=== PATIENT | female | born 1990 | race African-American/Black ===

== ENCOUNTER → 2020-12-19 11:02 | Outpatient (BNVA) | payer MEDICAID, SELFPAY | PROVIDERS: PCP Family Medicine; Referring Provider Family Medicine; Visit Provider Physician Assistant ==

== ENCOUNTER → 2020-12-20 10:12 | Outpatient (BNVA) | payer MEDICAID, SELFPAY | PROVIDERS: PCP Family Medicine; Visit Provider Surgery ==

== ENCOUNTER 2020-12-21 10:13 | Outpatient (REF) | payer MEDICAID, SELFPAY ==
--- NOTE | ~2020-12-21 | XR_ITS ---
EXAMINATION: XR CHEST CLINICAL INFORMATION: Obesity COMPARISON: None TECHNIQUE: 2 views of the chest were obtained. FINDINGS: No significant abnormality is noted involving the heart, lungs, mediastinum, bony thorax or soft tissues. XR/XR chest 2V IMPRESSION: Unremarkable examination.
--- NOTE | 2020-12-21 10:21 | ECG_ITS ---
Test Reason : MORBID OBESITY Blood Pressure : / mmHG Vent. Rate : 062 BPM Atrial Rate : 062 BPM P-R Int : 190 ms QRS Dur : 088 ms QT Int : 424 ms P-R-T Axes : 009 066 013 degrees QTc Int : 430 ms Normal sinus rhythm Normal ECG No previous ECGs available Referred By: Kendall Solano Electronically Signed By:MARIANA LOPEZ
[2020-12-21 11:22] LABS: MANUAL DIFF FLAG NO
[2020-12-21 11:39] LABS: Alanine Aminotransferase 16 U/L (0-31); Alkaline Phosphatase 85 U/L (39-117); Anion Gap 11 (12-20); Aspartate Amino Transferase 18 U/L (5-31); Bilirubin Total 0.6 mg/dL (0.0-1.0); Blood Urea Nitrogen 17 mg/dL (9-16); C Reactive Protein 0.85 mg/dL (< or = 0.50); Calcium 9.3 mg/dL (8.4-10.2); Carbon Dioxide 26 mmol/L (22-29); Chloride 105 mmol/L (96-108); Cholesterol 216 mg/dL; Estimated Glomerular Filt Rate > 60; Glucose Random 84 mg/dL (60-115); HDL Cholesterol 40 mg/dL; Iron 70 mcg/dL (30-160); LDL Cholesterol Calculated 148 mg/dl; Percent Iron Saturation 23 % (15-50); Potassium 4.3 mmol/L (3.3-5.1); Sodium 138 mmol/L (135-145); Total Iron Binding Capacity 309 mcg/dL (228-428); Triglycerides 142 mg/dL; Unsaturated Iron Binding 239 ug/dL
[2020-12-21 11:40] LABS: Basophils Percent Auto 0.3 % (0-2); Eosinophils Absolute Auto 0.1 X10*3/uL (0.0-0.4); Eosinophils Percent Auto 2.2 % (0-4); Hematocrit 37.7 % (37-47); Hemoglobin 11.9 g/dl (12.0-16.0); Imm Gran Abs Auto 0.02 X10*3/uL (0.00-0.03); Imm Gran Pct Auto 0.3 % (0.0-0.4); Lymphocytes Absolute Auto 2.2 X10*3/uL (1.2-4.9); Lymphocytes Percent Auto 37.1 % (20-40); Mean Corpuscular HGB Conc 31.6 g/dl (31.0-35.0); Mean Corpuscular Hemoglobin 27.2 pg (27.0-33.0); Mean Corpuscular Volume 86.3 fL (80-98); Mean Platelet Volume 11.1 fL (9.4-12.3); Monocytes Absolute Auto 0.4 X10*3/uL (0.1-1.2); Monocytes Percent Auto 7.4 % (2-11); Neutrophils Absolute Auto 3.1 X10*3/uL (2.0-8.3); Neutrophils Percent Auto 52.7 % (45-73); Platelet Count 289 X10*3/uL (160-400); Red Blood Count 4.37 X10*6/uL (4.20-5.50); Red Cell Distribution Width 13.4 % (11.0-16.0)
[2020-12-21 11:54] LABS: Estimated Average Glucose 103 mg/dL; Hemoglobin A1c % 5.2 %
[2020-12-21 12:04] LABS: Ferritin 24 ng/mL (10-122); TSH reflex Free T4 3.46 uIU/mL (0.32-4.0); Vitamin D 25-OH Total 9.8 ng/mL (>30)
[2020-12-21 12:15] LABS: Folate 7.9 ng/mL (> or = 4.0); Vitamin B12 261 pg/mL (200-900)
[2020-12-22 09:11] LABS: Insulin Level Total 9.7 uIU/mL
[2020-12-22 13:12] LABS: Calcium (PTHI) 9.4 mg/dL (8.6-10.2); PTHI 62 pg/mL (14-64)
[2020-12-24 01:11] LABS: Zinc 79 mcg/dL (60-130)
[2020-12-26 13:16] LABS: Vitamin A 30 mcg/dL (38-98)
[2020-12-27 10:06] LABS: Vitamin B1 8 nmol/L (8-30)
== END 2020-12-21 10:14 | disposition home or self-care (01) ==
LOC: HO.LAB 10:13
PROVIDERS: Visit Provider Surgery
DX: E66.01 Morbid (severe) obesity due to excess calories (principal); E03.9 Hypothyroidism, unspecified; K21.9 Gastro-esophageal reflux disease without esophagitis
CPT/HCPCS: 36415; 71046; 80053; 80061; 82306; 82607; 82728; 82746; 83036; 83525; 83540; 83970; 84425; 84443; 84590; 84630; 85025; 86140; 93005

== ENCOUNTER 2021-01-11 08:31 | Outpatient (REF) | payer MEDICAID, SELFPAY ==
--- NOTE | ~2021-01-11 | FL_ITS ---
EXAMINATION: FL GI SERIES CLINICAL INFORMATION: Moderate to severe obesity. COMPARISON: None TECHNIQUE: Routine upper GI air contrast study was performed FINDINGS: Following oral administration of thick barium and effervescent granules there is normal propagation of bolus from the oral cavity through the pharynx, esophagus into stomach without any evidence of obstruction, narrowing or stricture. On placing patient supine and prone lying the course, caliber and peristalsis of the stomach is normal. No gastroesophageal reflux or hiatal hernia seen. A small segment of the fundus extends to the diaphragm, question diverticulum. The mucosal pattern of the stomach and duodenum is normal. FLUOROSCOPY TIME: 1.1 minutes DOSE AREA PRODUCT: 71.375 uGy-m2 (microgray-meter squared) FL/FL upper GI series IMPRESSION: Unremarkable upper GI air contrast study except for possible gastric fundus diverticulum.
--- NOTE | 2021-01-11 09:51 | PFT_ITS ---
INDICATION: Asthma. SPIROMETRY: The FEV1 to FVC 90% with an FEV1 of 4.28 L, which is 119% predicted, and an FVC of 4.78 L, which is 112% predicted. No significant response to bronchodilators noted. Maximum voluntary ventilation 114% predicted. LUNG VOLUMES: Total lung capacity 99% predicted with diffusion capacity of 89% predicted. Flow volume loop appears to be normal. COMPARISONS: None. INTERPRETATION: No obstructive nor restrictive ventilatory defects identified. No significant response to bronchodilators noted. Normal lung volumes and normal diffusion capacity. Otherwise, consistent with normal lung mechanics. If asthma is in the differential, methacholine challenge may be helpful in assessing for hyper-reactive airways, otherwise clinical correlation warranted. Eduin Alfaro MD MR/MODL / [id number]
[2021-01-12 12:32] LABS: H Pylori Breath Test NOT DETECTED (NOT DETECTED)
== END 2021-01-11 08:32 | disposition home or self-care (01) ==
LOC: HO.US 08:31
PROVIDERS: Visit Provider Surgery
DX: Z01.818 Encounter for other preprocedural examination (principal); E66.01 Morbid (severe) obesity due to excess calories; K21.9 Gastro-esophageal reflux disease without esophagitis; J45.41 Moderate persistent asthma with (acute) exacerbation; G47.10 Hypersomnia, unspecified; E03.9 Hypothyroidism, unspecified; G47.19 Other hypersomnia
CPT/HCPCS: 74240; 83013; 94060; 94727; 94729; 95806; 99211

== ENCOUNTER → 2021-01-12 08:21 | Outpatient (BNVA) | payer MEDICAID, SELFPAY | PROVIDERS: PCP Family Medicine; Visit Provider Dietitian, Registered | DX: E66.01 Morbid (severe) obesity due to excess calories (principal) | CPT/HCPCS: 97802 ==

== ENCOUNTER → 2021-01-18 08:20 | Outpatient (BNVA) | payer MEDICAID, SELFPAY | PROVIDERS: PCP Family Medicine; Visit Provider Surgery ==

== ENCOUNTER → 2021-01-31 08:12 | Outpatient (BNVA) | payer MEDICAID, SELFPAY | PROVIDERS: PCP Family Medicine; Visit Provider Physician Assistant ==

== ENCOUNTER 2023-03-12 11:54 | Outpatient (REF) | payer MEDICAID, SELFPAY ==
[2023-03-12 14:24] LABS: Free T4 (Free Thyroxine) 0.88 ng/dL (0.71-1.85); Thyroid Stimulating Hormone 7.58 uIU/mL (0.32-4.0)
== END 2023-03-12 11:55 | disposition home or self-care (01) ==
LOC: HO.HHCL 11:54
PROVIDERS: Visit Provider Family Medicine
DX: Z13.89 Encounter for screening for other disorder (principal)
CPT/HCPCS: 36415; 84439; 84443

== ENCOUNTER 2023-03-21 12:06 | Outpatient (REF) | payer MEDICAID, SELFPAY ==
--- NOTE | ~2023-03-21 | XR_ITS ---
EXAMINATION: XR foot RT min 3V, XR foot LT min 3V CLINICAL INFORMATION: Bilateral heel pain COMPARISON: None. TECHNIQUE: 3 views of the right foot. 3 views of the left foot. FINDINGS: Right foot: No fracture or dislocation. Alignment is anatomic. Joint spaces are maintained. Mild diffuse soft tissue swelling/prominence. There is moderate hypertrophic spurring at the plantar aponeurosis and Achilles insertion to the calcaneus. Left foot: No fracture or dislocation. Alignment is anatomic. Joint spaces are maintained. Mild diffuse soft tissue swelling/prominence. There is mild hypertrophic spurring of the plantar aponeurosis and Achilles insertion to the calcaneus. XR/XR foot RT min 3V IMPRESSION: Bilateral heel spurs, right greater than left. Mild diffuse soft tissue swelling/prominence.
--- NOTE | ~2023-03-21 | XR_ITS ---
EXAMINATION: XR foot RT min 3V, XR foot LT min 3V CLINICAL INFORMATION: Bilateral heel pain COMPARISON: None. TECHNIQUE: 3 views of the right foot. 3 views of the left foot. FINDINGS: Right foot: No fracture or dislocation. Alignment is anatomic. Joint spaces are maintained. Mild diffuse soft tissue swelling/prominence. There is moderate hypertrophic spurring at the plantar aponeurosis and Achilles insertion to the calcaneus. Left foot: No fracture or dislocation. Alignment is anatomic. Joint spaces are maintained. Mild diffuse soft tissue swelling/prominence. There is mild hypertrophic spurring of the plantar aponeurosis and Achilles insertion to the calcaneus. XR/XR foot LT min 3V IMPRESSION: Bilateral heel spurs, right greater than left. Mild diffuse soft tissue swelling/prominence.
--- NOTE | ~2023-03-21 | XR_ITS ---
EXAMINATION: XR HIP, RIGHT CLINICAL INFORMATION: Chronic right hip pain COMPARISON: 03/25/2018 TECHNIQUE: Two views of the right hip. FINDINGS: No fracture or dislocation. Alignment is anatomic. The joint space is maintained, though there may be some acetabular overgrowth superiorly. This is similar to prior. The right hemipelvis is intact. Soft tissues are unremarkable. XR/XR hip RT min 2V IMPRESSION: No acute abnormality. Possible acetabular overgrowth superiorly. This is similar to prior. Consider pincer-type JAKOB.
== END 2023-03-21 12:07 | disposition home or self-care (01) ==
LOC: HO.XRAY 12:06
PROVIDERS: PCP Family Medicine; Visit Provider Family Medicine
DX: M79.671 Pain in right foot (principal); M79.672 Pain in left foot; M25.551 Pain in right hip; G89.29 Other chronic pain
CPT/HCPCS: 73502; 73630

== ENCOUNTER 2023-05-23 12:45 | Outpatient (REF) | payer MEDICAID, SELFPAY | END 2023-05-23 12:46 | disposition home or self-care (01) | LOC: HO.HHCL 12:45 | PROVIDERS: Visit Provider Family Medicine | DX: E03.9 Hypothyroidism, unspecified (principal) | CPT/HCPCS: 36415; 84439; 84443 ==

== ENCOUNTER 2023-11-14 10:58 | Outpatient (REF) | payer MEDICAID, SELFPAY ==
[2023-11-14 13:56] LABS: Alanine Aminotransferase 23 U/L (0-31); Albumin Level 3.6 g/dL (3.5-5.0); Alkaline Phosphatase 68 U/L (39-117); Anion Gap 10 (12-20); Aspartate Amino Transferase 20 U/L (5-31); Bilirubin Total 0.6 mg/dL (0.0-1.0); Blood Urea Nitrogen 12 mg/dL (9-16); Calcium 9.2 mg/dL (8.4-10.2); Carbon Dioxide 29 mmol/L (22-29); Chloride 104 mmol/L (96-108); Cholesterol 206 mg/dL (<200); Estimated Glomerular Filt Rate > 60; Glucose Random 84 mg/dL (60-115); HDL Cholesterol 45 mg/dL (>40); LDL Cholesterol Calculated 135 mg/dL (<100); Potassium 3.6 mmol/L (3.3-5.1); Sodium 139 mmol/L (135-145); Total Protein 6.6 g/dL (6.5-8.0); Triglycerides 133 mg/dL (<150)
[2023-11-14 13:59] LABS: Estimated Average Glucose 103 mg/dL; Hemoglobin A1c % 5.2 % (<6.0)
[2023-11-14 14:15] LABS: Free T4 (Free Thyroxine) 0.94 ng/dL (0.71-1.85); Thyroid Stimulating Hormone 6.58 uIU/mL (0.32-4.0)
[2023-11-14 14:19] LABS: Reflex LDLD? No
== END 2023-11-14 10:59 | disposition home or self-care (01) ==
LOC: HO.HHCL 10:58
PROVIDERS: Visit Provider Family Medicine
DX: R03.0 Elevated blood-pressure reading, without diagnosis of hypertension (principal); E03.8 Other specified hypothyroidism; E06.3 Autoimmune thyroiditis; E66.01 Morbid (severe) obesity due to excess calories; Z68.44 Body mass index [BMI] 60.0-69.9, adult
CPT/HCPCS: 36415; 80053; 80061; 83036; 84439; 84443

== ENCOUNTER 2024-03-26 13:46 | Outpatient (REF) | payer MEDICAID, SELFPAY ==
[2024-03-27 20:19] LABS: C. trachomatis RNA TMA NOT DETECTED (NOT DETECTED); N. gonorrhoeae RNA TMA NOT DETECTED (NOT DETECTED)
[2024-03-29 08:39] LABS: Trichomonas (NAAT) NOT DETECTED (NOT DETECTED)
[2024-03-30 11:43] LABS: HPV mRNA E6/E7 Not Detected (Not Detected)
== END 2024-03-26 13:47 | disposition home or self-care (01) ==
LOC: HO.HHCLNP 13:46
PROVIDERS: Visit Provider Advanced Practice Midwife
DX: Z12.4 Encounter for screening for malignant neoplasm of cervix (principal)
CPT/HCPCS: 36415; 87491; 87591; 87624; 87661; 88175

== ENCOUNTER 2024-03-30 15:59 | Outpatient (REF) | payer MEDICAID, SELFPAY ==
--- NOTE | ~2024-03-30 | US_ITS ---
EXAM: Pelvic Ultrasound CLINICAL INDICATION: Dysmenorrhea COMPARISON: Pelvic ultrasound March 01, 2021 TECHNIQUE: The pelvis was evaluated using transabdominal and transvaginal imaging. Color Doppler imaging and spectral analysis of the bilateral ovaries was also performed. FINDINGS: The uterus measures 11.4 x 6.6 x 8.5 cm in longitudinal by AP by transverse dimension. The endometrial stripe measures 1.2 cm. The endometrium demonstrates an overall heterogeneous appearance. There is a 1.2 cm nabothian cyst within the cervix. The left ovary measures approximately 4.1 x 1.5 x 3.0 cm and contains a dominant 2.4 cm dominant follicle versus cyst.. The right ovary measures approximately 2.4 x 1.6 x 1.4 cm and is normal. Both ovaries demonstrate several small peripherally oriented cysts. There is no free fluid in the pelvis. US/US pelvic and transvaginal IMPRESSION: 1. Heterogeneous endometrium measures 1.2 cm in thickness. Correlation with menstrual cycle recommended. 2. Both ovaries demonstrate several small peripherally oriented cysts. This is a nonspecific finding but can be seen with polycystic ovarian syndrome. Clinical correlation recommended. Electronically signed by: Pepe Whiteside MD 04/17/2024 07:20 AM EDT
== END 2024-03-30 16:00 | disposition home or self-care (01) ==
LOC: HO.US 15:59
PROVIDERS: PCP Family Medicine; Visit Provider Advanced Practice Midwife
DX: N94.6 Dysmenorrhea, unspecified (principal)
CPT/HCPCS: 76830; 76856

== ENCOUNTER 2024-10-10 09:39 | Outpatient (REF) | payer MEDICAID, SELFPAY ==
--- NOTE | ~2024-10-10 | MR_ITS ---
CLINICAL HISTORY: SKELTON, Blurry vision, concern for intracranial HTN MR Brain without gadolinium Comparison: None Findings: No restricted diffusion. No intracranial mass or hemorrhage. No midline shift. No hydrocephalus. Vascular flow voids are intact. The orbits are normal. The sinuses and mastoid air cells are clear. No focal bone lesion. IMPRESSION: No acute findings. This document has been electronically signed by: Alfred Wynn MD on 10/12/2024 08:56:07
== END 2024-10-10 09:40 | disposition home or self-care (01) ==
LOC: HO.MRI 09:39
PROVIDERS: PCP Family Medicine; Visit Provider Family Medicine
DX: G43.009 Migraine without aura, not intractable, without status migrainosus (principal); R03.0 Elevated blood-pressure reading, without diagnosis of hypertension
CPT/HCPCS: 70551

== ENCOUNTER → 2024-10-10 09:59 | Outpatient (BNV) | payer MEDICAID, SELFPAY | PROVIDERS: PCP Family Medicine; Visit Provider Specialist | DX: R51.9 Headache, unspecified (principal) | CPT/HCPCS: 70551 ==

== ENCOUNTER 2024-11-06 13:22 | Outpatient (REF) | payer MEDICAID, SELFPAY ==
--- NOTE | 2024-11-06 | EMG_ITS ---
Chief complaint: Bilateral hand numbness and pain Reason for referral: Evaluate for Carpal Tunnel Syndrome Referred by: Dr. Shi Procedure done: Upper extremity NCS/EMG Precautions and/or limitations: None The limb temperature was monitored continuously and remained between 32-36 degrees C during the performance of the NCS. Nerve Conduction Studies Anti Sensory Summary Table ?Stim Site NR Onset (ms) Norm Onset (ms) Peak (ms) Norm Peak (ms) O-P Amp (?V) Norm O-P Amp Site1 Site2 Delta-0 (ms) Dist (cm) Dylan (m/s) Norm Dylan (m/s) Left Median Anti Sensory (2nd Digit) Wrist ? 3.0 3.8 <3.6 32.1 >10 Wrist 2nd Digit 3.0 14.0 47 Right Median Anti Sensory (2nd Digit) Wrist ? 3.3 4.0 <3.6 19.6 >10 Wrist 2nd Digit 3.3 14.0 42 Right Radial Anti Sensory (Thumb) Forearm ? 1.7 2.3 <3.1 11.7 Forearm Thumb 1.7 0.0 Left Ulnar Anti Sensory (5th Digit) Wrist ? 2.5 3.1 <3.7 15.0 >15.0 Wrist 5th Digit 2.5 14.0 56 Right Ulnar Anti Sensory (5th Digit) Wrist ? 2.3 3.1 <3.7 20.2 >15.0 Wrist 5th Digit 2.3 14.0 61 Motor Summary Table ?Stim Site NR Onset (ms) Norm Onset (ms) O-P Amp (mV) Norm O-P Amp iAmp (mV) Amp (1st) (%) Site1 Site2 Delta-0 (ms) Dist (cm) Dylan (m/s) Norm Dylan (m/s) Left Median Motor (Abd Poll Brev) Wrist ? 3.8 <3.9 10.9 >4.5 13.1 100.0 Elbow Wrist 3.6 21.0 58 >45 Elbow ? 7.4 9.3 11.2 85.3 Right Median Motor (Abd Poll Brev) Wrist ? 4.1 <3.9 7.9 >4.5 9.7 100.0 Elbow Wrist 3.8 22.0 58 >45 Elbow ? 7.9 6.9 8.4 87.3 Left Ulnar Motor (Abd Dig Minimi) Wrist ? 2.7 <3.0 5.0 >5 6.2 100.0 B Elbow Wrist 3.4 20.0 59 >45 B Elbow ? 6.1 3.9 5.5 83.0 A Elbow B Elbow 1.2 10.0 83 >45 A Elbow ? 7.3 3.8 5.3 80.9 Right Ulnar Motor (Abd Dig Minimi) Wrist ? 3.0 <3.0 5.7 >5 6.7 100.0 B Elbow Wrist 3.1 20.0 65 >45 B Elbow ? 6.1 4.5 5.5 78.9 A Elbow B Elbow 1.0 10.0 100 >45 A Elbow ? 7.1 4.6 5.5 80.7 EMG ?Side Muscle Nerve Root Ins Act Fibs Psw Amp Dur Poly Recrt Int Pat Comment Right 1stDorInt Ulnar C8-T1 Nml Nml Nml Nml Nml 0 Nml Complete Right FlexCarRad Median C6-7 Nml Nml Nml Nml Nml 0 Nml Complete Right Biceps Musculocut C5-6 Nml Nml Nml Nml Nml 0 Nml Complete Right Triceps Radial C6-7-8 Nml Nml Nml Nml Nml 0 Nml Complete Right Deltoid Axillary C5-6 Nml Nml Nml Nml Nml 0 Nml Complete Left 1stDorInt Ulnar C8-T1 Nml Nml Nml Nml Nml 0 Nml Complete Left FlexCarRad Median C6-7 Nml Nml Nml Nml Nml 0 Nml Complete Left Biceps Musculocut C5-6 Nml Nml Nml Nml Nml 0 Nml Complete Left Triceps Radial C6-7-8 Nml Nml Nml Nml Nml 0 Nml Complete Left Deltoid Axillary C5-6 Nml Nml Nml Nml Nml 0 Nml Complete FINDINGS: Right median motor nerve showed prolonged distal latency, normal amplitude and normal conduction velocity. Bilateral median sensory nerves showed prolonged peak latency. All other nerves tested were within normal. Concentric needle EMG was performed in selected muscles of the bilateral upper extremities. Study did not reveal signs of electric abnormalities as shown in the table above. IMPRESSION: 1. This is an abnormal study. 2. There is electrodiagnostic evidence for right moderate-severe and left mild median neuropathy at the wrist, consistent with carpal tunnel syndrome. 3. There is no electrodiagnostic evidence for ulnar neuropathy, brachial plexopathy, or cervical radiculopathy. Thank you for your kind referral. Karen Romo MD, STEPHEN Board Certified, [place] [employer] and [employer] (ABPMR) Board Certified, [place] Board [employer] Electrodiagnostic Medicine (ABEM) CODIN [phone] x 2 MTDD
--- OUTSIDE RECORDS SUMMARY | 2024-11-06 15:44 | XMS_ITS | Encounter Summary ---
Author Organization [employer] Address [address] [place] [address] 7 [place] [address] Care Team Providers Care Float Nurse Name Role Phone Claribel Shi MD Primary Care Provider [phone] Reason for Visit * Reason Comments Med Refill Encounter Details Date Type Department Care Team ([facility] st Contact Info) Description 10/08/2024 Refill [facility] [address] [place] [address] [phone] Claribel Shi MD [address], [place] [phone] Social History Tobacco Use Types Packs/Day Years Used Date Smoking Tobacco: Never Passive Smoke Exposure: Never Smokeless Tobacco: Never Alcohol Use Standard Drinks/Week Comments Not Currently 0 (1 standard drink = 0.6 oz pur e alcohol) Alcohol Answer Date Recorded Frequency of Alcohol Consumption Not on file 06/16/2024 Average Number of Drinks Not on file 024 Frequency of Binge Drinking Not on file 05/20 Score 0 06/16/2024 Depression Answer Date Recorded Patient Health Questionnaire-9 Score 0 10/01/2024 Patient Health Questionnaire-9 Score 0 10/01/2024 Last PHQ-9: Questionnaire Data Not on file 0 10/01/2024 Housing Stability Answer Date Recorded What is your housing situation today? I have greg hernadez 06/03/[address] you li ve. Do you have problems with any of the following? None of the above 06/03/2024 Food Insecurity Answer Date Recorded Within the past 12 months, y ou worried that your food would run out before you got money to buy more: Sometimes True 2023 Within the past 12 months,th e food you bought just didn't last and you didn't have enough money to get more: Sometimes True 06/03/2024 Transportation Answer Date Recorded In the past 12 months, has l ack of transportation kept you from medical appts, meetings, work or from getting things needed for daily living? No 06/03/2024 Utilities Answer Date Recorded In the past 12 months, has t he electric, gas, oil or water company threatened to shut off services in your home? No 06/03/2024 Depression Answer Date Recorded Patient Health Questionnaire-2 Score 0 10/01/2024 Internet Access Answer Date Recorded Internet Access Q1 Yes 06/03/2024 Internet Access Q2 Not on file 06/03/2024 Comments No Sex and Gender Information Value Date Recorded Sex Assigned at Female 06/18/2022 10:21 AM EDT Legal Sex Female 10:21 AM EDT Gender Identity Female 06/18/2022 10:21 AM EDT Sexual Orientation Straight 06/18/2022 10 :21 AM EDT documented as of this encounter Plan of Treatment Upcoming Encounters Date Type Department Care Team (Late st Contact Info) Description 12/31/2024 11:30 AM EDT Office Visit [facility] [address] [place] [address] Claribel Shi MD [address] [place] [address] documented as of this encounter Visit Diagnoses Not on filedocumented in this encounter Additional Health Concerns Assessment Noted Time PHQ-9 Depression Total Score: 0 10/01/19 25 11:02 AM EST documented as of this encounter Care Teams Float Nurse Relationship Specialty Start Date End Date Claribel Shi MD [address] [place] [address] PCP - General Family Medicine 03/20/12 documented as of this encounter
--- OUTSIDE RECORDS SUMMARY | 2024-11-06 15:44 | XMS_ITS | Encounter Summary ---
Author Organization [employer] Address [address] [facility] [address] [place] [address] Care Team Providers Care Clinical Rehabilitation Aide Name Role Phone Claribel Shi MD Primary Care Provider [phone] Reason for Visit * Reason Onset Date Comments Durable Medical Equipment 10/08/2024 Encounter Details Date Type Department Care Team ([facility] st Contact Info) Description 10/08/2024 Telephone [facility] [address] [place], [place] [phone] Claribel Shi MD [address] [place] [address] Durable Medical Equipment Social History Tobacco Use Types Packs/Day Years [...] AM EDT documented as of this encounter Miscellaneous Notes * Telephone Encounter - Rika Anthony [place] - 10/08/2024 11:17 AM EST DME for blood pressure monitor from [facility] received and is being processed. documented in this encounter Plan of Treatment Upcoming Encounters Date Type Department Care Team (Late st Contact Info) Description 12/31/2024 11:30 AM EDT Office Visit [facility] [address] [place] [address] Claribel Shi MD [address] [place] [address] documented as of this encounter Visit Diagnoses Not on filedocumented in this encounter Additional Health Concerns Assessment Noted Time PHQ-9 Depression Total Score: 0 10/01/19 25 11:02 AM EST documented as of this encounter Care Teams Clinical Rehabilitation Aide Relationship Specialty Start Date End Date Claribel Shi MD [address] [place] [address] PCP - General Family Medicine 03/20/12 documented as of this encounter
--- OUTSIDE RECORDS SUMMARY | 2024-11-06 15:44 | XMS_ITS | Encounter Summary ---
Author Organization [employer] Address [address] [facility] [address] [place] [address] Care Team Providers Care Torch Cutter Name Role Phone Claribel Shi MD Primary Care Provider [phone] Encounter Details Date Type Department Care Team ([facility] st Contact Info) Description 11/02/2024 Refill [facility] [address] [place], [place] [phone] Elizabeth Garcia, RN [address] [place] [address] Social History Tobacco Use Types Packs/Day Years [...] encounter Miscellaneous Notes * Telephone Encounter - Elizabeth Garcia RN - 11/02/2024 2:01 PM EDT Spoke with DME specialist. PCP sent generic Tirzepatide but they way it was sent, when it goes to pharmacy it is billed as Mounjaro, not Zepbound. Has to be sent as the Tirzepatide with Zepbound in the name. Queued script documented in this encounter Plan of Treatment Upcoming Encounters Date Type Department Care Team (Late st Contact Info) Description 12/31/2024 11:30 AM EDT Office Visit [facility] [address] [place] [address] Claribel Shi MD [address] [place] [address] documented as of this encounter Visit Diagnoses Not on filedocumented in this encounter Additional Health Concerns Assessment Noted Time PHQ-9 Depression Total Score: 0 10/01/19 25 11:02 AM EST documented as of this encounter Care Teams Torch Cutter Relationship Specialty Start Date End Date Claribel Shi MD [address] [place] [address] PCP - General Family Medicine 03/20/12 documented as of this encounter
--- OUTSIDE RECORDS SUMMARY | 2024-11-06 15:44 | XMS_ITS | Clinical Summary ---
Author Organization [employer] Address [address] [place] [address] [address] [place] [address] Care Team Providers Care Mercerizing Range Feeder Name Role Phone Claribel Shi MD Primary Care Provider [phone] Allergies No known active allergies Medications ondansetron (Zofran) 4 MG tablet Take 1 or 2 tablets by mouth every 8 hours as needed for severe nausea / vomiting 45 tablet 1 03/12/20 23 Active Blood Pressure Monitor kit Check blood pressure once daily and as needed 1 kit 11/14/19 24 Active topiramate (Topamax) 25 MG tablet TAKE 1 TABLET BY MOUTH AT BEDTIME 90 tablet 3 12/30/19 24 Active D3 Super Strength 50 MCG (1999 UT) capsule TAKE 1 CAPSULE (50 MCG) BY MOUTH IN THE MORNING 90 capsule 3 03/26/20 24 Active Vit-Fe Fumarate-FA ( Plus) 27-1 MG tablet One tablet by mouth daily 30 tablet 11 03/26/20 24 Active levothyroxine (Synthroid, Levoxyl) 75 MCG tablet TAKE 1 TABLET BY MOUTH BEFORE BREAKFAST 90 tablet 3 06/22/20 24 Active Tirzepatide-We ight Management 7.5 MG/0.5ML solution auto-injector Inject 0.5 mL (7.5 mg) under the skin 1 (one) time per week. 2 mL 11 10/01/19 25 Active naproxen (Naprosyn) 500 MG tablet TAKE 1 TABLET BY MOUTH TWICE DAILY NEEDED FOR PAIN 30 tablet 2 10/08/19 25 Active Tirzepatide-We ight Management (Zepbound) 7.5 MG/0.5ML solution auto-injector Inject 0.5 mL (7.5 mg) under the skin 1 (one) time per week. 2 mL 11/03/19 25 Active naproxen (Naprosyn) 500 MG tablet TAKE 1 TABLET BY MOUTH TWICE A DAY NEEDED FOR PAIN 30 tablet 2 06/16/20 24 025 Discontinued Active Problems Problem Noted Date Diagnosed Date Chronic headache 10/03/2024 Assessment & Plan (10/03/2024 5:02 PM EST): - multifactorial: migraine; SUREKHA; - evaluate for intracranial hypertension - consider sleep study / evaluation for SUREKHA (patient declined because she was sleeping better since she started losing weight) - currently being treated as migraine - check lab - refer to neurologist - refer to perch machine inspector for blurry vision Chronic pain of both shoulders 10/01/2024 Assessment & Plan (10/02/2024 10:09 AM EST): - positive impingement - evaluate with X-ray - refer to PT - judicious warner of NSAIDs Pain in both hands 10/01/2024 Assessment & Plan (10/03/2024 4:53 PM EST): - evaluate with X-ray and NCT/EMG - judicious use of APAP or NSAIDs - activity modification - keep euthyroid state Pain in both wrists 10/01/2024 Assessment & Plan (10/02/2024 10:17 AM EST): - evaluate with X-ray and NCT/EMG - use brace - activity modification - judicious use of NSAIDs Elevated BP without diagnosis of hypertension Assessment & Plan (10/03/2024 4:50 PM EST): -Goal BP < 140/90 per JNC-8 and < 130/80 per ACC/AHA guideline (Treatment threshold >=140/90) -Home BP within acceptable range -Continue working on lifestyle modifications -Recommended to continue self-monitoring BP. Patient had a difficulty finding a BP monitor due to her large arm circumference, and now has a wrist BP monitor. -Follow up in 3-6 mo, sooner if any problem arises Assessment & Plan (06/16/2024 2:14 PM EDT): -Goal BP < 140/90 per JNC-8 and < 130/80 per ACC/AHA guideline (Treatment threshold >=140/90) -Continue working on lifestyle modifications -Recommended self-monitoring BP. Patient was unable to receive BP monitor. Will check if she can get wrist BP monitor. -Follow up in 3-6 mo, sooner if any problem arises Assessment & Plan (11/15/2023 10:44 AM EDT): -Goal BP < 140/90 per JNC-8 and < 130/80 per ACC/AHA guideline (Treatment threshold >=140/90) -Continue working on lifestyle modifications -Recommended self-monitoring BP. 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 Assessment & Plan (10/02/2024 10:08 AM EST): -Thyroid peroxidase antibody > 900, TSH 5.42 on 12/19/21 -11/08/22 TSH 7.8 -03/12/23 TSH 7.54, questionable adherence -05/23/23 TSH 5.63, Free T4 1.06 -11/14/23 TSH 6.58 Free T4 0.94 -current replacement: levothyroxine 75 mcg daily, increased in May 2023 -improve adherence to levothyroxine -patient was advised to have repeat lab Assessment & Plan (06/16/2024 2:17 PM EDT): -Thyroid peroxidase antibody > 900, TSH 5.42 on 12/19/21 -11/08/22 TSH 7.8 -03/12/23 TSH 7.54, questionable adherence -05/23/23 TSH 5.63, Free T4 1.06 -11/14/23 TSH 6.58 Free T4 0.94 -current replacement: levothyroxine 75 mcg daily, increased in May 2023 -improve adherence to levothyroxine -patient was advised to have repeat lab Assessment & Plan (11/15/2023 10:42 AM EDT): -Thyroid peroxidase antibody > 900, TSH 5.42 on 12/19/21 -11/08/22 TSH 7.8 -03/12/23 TSH 7.54, questionable adherence -05/23/23 TSH 5.63, Free T4 1.06 -11/14/23 TSH 6.58 Free T4 0.94 -current replacement: levothyroxine 75 mcg daily, increased in May 2023 -improve adherence to levothyroxine Assessment & Plan (10/03/2023 4:30 AM EST): -Thyroid peroxidase antibody > 900, TSH 5.42 on 12/19/21 -11/08/22 TSH 7.8 -03/12/23 TSH 7.54, questionable adherence -05/23/23 TSH 5.63, Free T4 1.06 -current replacement: levothyroxine 75 mcg daily, increased in May 2023 -check TSH today Assessment & Plan (05/24/2023 2:26 PM EDT): -Thyroid peroxidase antibody > 900, TSH 5.42 on 12/19/21 -11/08/22 TSH 7.8 -03/12/23 TSH 7.54, questionable adherence -current replacement: levothyroxine 50 mcg daily, increasing to 75 mcg daily -check TSH today, which showed some improvement but still 5.63. Will increase levothyroxine today Assessment & Plan (03/15/2023 4:30 PM EDT): -Thyroid peroxidase antibody > 900, TSH 5.42 on 12/19/21 -11/08/22 TSH 7.8 -current replacement: levothyroxine 50 mcg daily -check TSH today Assessment & Plan (11/17/2022 5:56 PM EDT): -Thyroid peroxidase antibody > 900, TSH 5.42 on 12/19/21 -prescribed levothyroxine 50 mcg daily; pt has not been taking it -pt states she will start taking it again -check baseline lab, and if it is abnormal, recheck in 6 weeks Bilateral foot pain 11/08/2022 Assessment & Plan (11/15/2023 10:40 AM EDT): - seen by telephone interviewer and received steroid injection, which was very effective -x-ray on 03/2018 showed small ankle effusion and moderate plantar calcaneal spur -X-ray showed b/l heel spurs, right greater than left -Continue to wear comfortable shoes, apply ice, and home exercise program Assessment & Plan (10/03/2023 4:28 AM EST): B/l foot pain, previously seen by telephone interviewer -referred to telephone interviewer in [facility] 2022; still on wait list -x-ray on 03/2018 showed small ankle effusion and moderate plantar calcaneal spur -X-ray showed b/l heel spurs, right greater than left -Pt was re-referred to Dr. Rivero in November 2022 and May 2023 -Continue to wear comfortable shoes, apply ice, and home exercise program Assessment & Plan (05/24/2023 2:20 PM EDT): B/l foot pain, previously seen by telephone interviewer -referred to telephone interviewer in [facility] 2022; still on wait list -x-ray on 03/2018 showed small ankle effusion and moderate plantar calcaneal spur -X-ray showed b/l heel spurs, right greater than left -Pt was referred to Dr. Rivero in November 2022; will send a new referral -Continue to wear comfortable shoes, apply ice, and home exercise program Assessment & Plan (03/15/2023 4:28 PM EDT): B/l foot pain, previously seen by telephone interviewer -referred to telephone interviewer in [facility] 2022; still on wait list -xray on 03/2018 showed small ankle effusion and moderate plantar calcaneal spur -repeat X-ray and consider referring to Dr. Alfaro for injection or [facility] -Continue to wear comfortable shoes, apply ice, and home exercise program Assessment & Plan (11/17/2022 5:51 PM EDT): B/l foot pain, previously seen by telephone interviewer -She is interested in returning to telephone interviewer -xray on 03/2018 showed small ankle effusion and moderate plantar calcaneal spur -Continue to wear comfortable shoes Xerosis of skin 11/08/2022 Assessment & Plan (11/17/2022 5:51 PM EDT): -pt requests referral to Dr. Villegas Chronic hip pain 10/11/2022 Assessment & Plan (10/03/2024 4:54 PM EST): -she has leg discrepancy, possible trochanteric bursitis -right hip x-ray done in 03/2018 - currently left side is worse than right side -Referred to PT in 2020 -pt advised to take muscle relaxant and tylenol prn -referred to [facility] for both heel and hip pain in 2023 Assessment & Plan (03/15/2023 4:26 PM EDT): -she has leg discrepancy, possible trochanteric bursitis -right hip x-ray done in 03/2018 -Referred to PT in 2020 -pt advised to take muscle relaxant and tylenol prn -referring to [facility] again for both heel and hip pain Assessment & Plan (11/08/2022 11:32 AM EDT): -she has leg discrepancy and referred to PT in the past right hip x-ray done in 03/2018 -Referred to PT in 2020 -pt advised to take muscle relaxant and tylenol prn Leg length inequality 10/11/2022 Vitamin D deficiency 03/25/2018 Assessment & Plan (10/02/2024 10:09 AM EST): - 11/08/22 Vitamin D 13 - continue vitamin D 2000 units daily Assessment & Plan (03/15/2023 4:28 PM EDT): - 11/08/22 Vitamin D 13 - restart vitamin D 2000 units daily Assessment & Plan (11/08/2022 11:57 AM EDT): -Previously treated with vit D replacement but stopped supplement -will check labs again -will likely need to repeat vit D replacement Gallstone 07/30/2017 Assessment & Plan (10/03/2024 4:51 PM EST): -Referred to General Surgery 12/08/20 for: cholelithiasis and obesity Pt has RUQ pain and gallstone for many years. She was recommended to have cholecystectomy when she has bariatric surgery. Pt has signed up for a weight management clinic. - She may be able to have both cholecystectomy and bariatric surgery at the same time. But pt defers Bariatric surgery at this time and wants to have the gallstone removed. -Referred to General Surgery for elective cholecystectomy in October 2022; pt was evaluated with US in November 2022 which showed gallstone without signs of acute inflammation. Pt was told that she needs to lose weight 50 lb or < 400 lb before the surgery -Patient is making great progress Assessment & Plan (06/16/2024 2:15 PM EDT): -Referred to General Surgery 12/08/20 for: cholelithiasis and obesity Pt has RUQ pain and gallstone for many years. She was recommended to have cholecystectomy when she has bariatric surgery. Pt has signed up for a weight management clinic. - She may be able to have both cholecystectomy and bariatric surgery at the same time. But pt defers Bariatric surgery at this time and wants to have the gallstone removed. -Referred to General Surgery for elective cholecystectomy in October 2022; pt was evaluated with US in November 2022 which showed gallstone without signs of acute inflammation. Pt was told that she needs to lose weight 50 lb before the surgery -Patient is making great progress and has a follow-up appointment with the general surgeon in September 2024. Assessment & Plan (11/15/2023 10:39 AM EDT): -Referred to General Surgery 12/08/20 for: cholelithiasis and obesity Pt has RUQ pain and gallstone for many years. She was recommended to have cholecystectomy when she has bariatric surgery. Pt has signed up for a weight management clinic. - She may be able to have both cholecystectomy and bariatric surgery at the same time. But pt defers Bariatric surgery at this time and wants to have the gallstone removed. -Referred to General Surgery for elective cholecystectomy in October 2022; pt was evaluated with US in November 2022 which showed gallstone without signs of acute inflammation. Pt was told that she needs to lose weight 50 lb before the surgery Assessment & Plan (10/03/2023 4:27 AM EST): -Referred to General Surgery 12/08/20 for: cholelithiasis and obesity Pt has RUQ pain and gallstone for many years. She was recommended to have cholecystectomy when she has bariatric surgery. Pt has signed up for a weight management clinic. - She may be able to have both cholecystectomy and bariatric surgery at the same time. But pt defers Bariatric surgery at this time and wants to have the gallstone removed. -Referred to General Surgery for elective cholecystectomy in October 2022; pt was evaluated with US in November 2022 which showed gallstone without signs of acute inflammation. Pt was told that she needs to lose weight before the surgery Assessment & Plan (05/24/2023 2:18 PM EDT): -Referred to General Surgery 12/08/20 for: cholelithiasis and obesity Pt has RUQ pain and gallstone for many years. She was recommended to have cholecystectomy when she has bariatric surgery. Pt has signed up for a weight management clinic. - She may be able to have both cholecystectomy and bariatric surgery at the same time. But pt defers Bariatric surgery at this time and wants to have the gallstone removed. -Referred to General Surgery for elective cholecystectomy in October 2022; pt was evaluated with US in November 2022 which showed gallstone without signs of acute inflammation. Pt was told that she needs to lose weight before the surgery Assessment & Plan (03/15/2023 4:25 PM EDT): -Referred to General Surgery 12/08/20 for: cholelithiasis and obesity Pt has RUQ pain and gallstone for many years. She was recommended to have cholecystectomy when she has bariatric surgery. Pt has signed up for a weight management clinic. - She may be able to have both cholecystectomy and bariatric surgery at the same time. But pt defers Bariatric surgery at this time and wants to have the gallstone removed. -Referred to General Surgery for elective cholecystectomy in October 2022; pt was advised to call the office Assessment & Plan (11/08/2022 12:06 PM EDT): -Referred to General Surgery 12/08/20 for: cholelithiasis and obesity Pt has RUQ pain and gallstone for many years. She was recommended to have cholecystectomy when she has bariatric surgery. Pt has signed up for a weight management clinic. - She may be able to have both cholecystectomy and bariatric surgery at the same time. But pt defers Bariatric surgery at this time and wants to have the gallstone removed. -Will refer to General Surgery for Cholecystectomy Migraine without aura and wi thout status migrainosus, not intractable 07/28/2012 Assessment & Plan (10/03/2024 4:56 PM EST): Frequency is about 4-6 times per month. She has not started prophylactic medication yet Refill prescription for Sumatriptan 50 mg today, and consider starting prophylactic medication if symptoms are more severe or frequent Take ondansetron prn for nausea / vomiting associated with migraine Rule out temporal arteritis, although unlikely Refer to neurology Refer to ophthalmology Advised to contact us is frequency and/or severity worsen. Possibly worsened by SUREKHA Consider work-up and treatment for pseudotumor cerebri Assessment & Plan (10/03/2023 4:30 AM EST): Frequency is about 6 times per month. She has not started prophylactic medication yet Refill prescription for Sumatriptan 50 mg today, and consider starting prophylactic medication if symptoms are more severe or frequent Take ondansetron prn for nausea / vomiting associated with migraine Advised to contact us is frequency and/or severity worsen. Possibly worsened by SUREKHA Consider work-up and treatment for pseudotumor cerebri Assessment & Plan (05/24/2023 2:23 PM EDT): Frequency is about 6 times per month. She has not started prophylactic medication yet Refill prescription for Sumatriptan 50 mg today, and consider starting prophylactic medication if symptoms are more severe or frequent Take ondansetron prn for nausea / vomiting associated with migraine Advised to contact us is frequency and/or severity worsen. Possibly worsened by SUREKHA Consider work-up and treatment for pseudotumor cerebri Assessment & Plan (03/15/2023 4:33 PM EDT): Frequency is about 6 times per month. She has not started prophylactic medication yet Refill prescription for Sumatriptan 50 mg today, and consider starting prophylactic medication if symptoms are more severe or frequent Take ondansetron prn for nausea / vomiting associated with migraine Advised to contact us is frequency and/or severity worsen. Assessment & Plan (11/17/2022 5:52 PM EDT): Frequency is about 6 times per month. She has not started prophylactic medication yet Refill prescription for Sumatriptan 50 mg today, and consider starting prophylactic medication if symptoms are more severe or frequent Consider antiemetic if severe. Advised to contact us is frequency and/or severity worsen. Class 3 severe obesity witho ut serious comorbidity with body mass index (BMI) of 60.0 to 69.9 in adult 07/28/2012 Assessment & Plan (10/02/2024 10:08 AM EST): -previously seen by [facility] Wt management program. -Continue working on lifestyle modifications -Discussed about Dr. [facility] Weight management program. -Previously on wegovy 1.7 mg weekly. -Currently on tirzepatide, (Zepbound), 5 mg weekly since May 2024. Increase to 7.5 mg weekly. Assessment & Plan (06/16/2024 2:16 PM EDT): -previously seen by [facility] Wt management program. -Continue working on lifestyle modifications -Recommended to check out Dr. [facility] Weight management program. -Currently on wegovy 1.7 mg weekly. Consider changing to zepbound. Assessment & Plan (11/15/2023 10:43 AM EDT): -previously seen by [facility] Wt management program. -Continue working on lifestyle modifications -Recommended to check out Dr. [facility] Weight management program. -Will try GLP-1 agonist Assessment & Plan (10/03/2023 4:28 AM EST): -previously seen by [facility] Wt management program. -Continue working on lifestyle modifications -Recommended to check out Dr. [facility] Weight management program. Assessment & Plan (05/24/2023 2:22 PM EDT): -previously seen by [facility] Wt management program. -Continue working on lifestyle modifications -Recommended to check out Dr. [facility] Weight management program. Assessment & Plan (03/15/2023 4:32 PM EDT): -previously seen by [facility] Wt management program. -Continue working on lifestyle modifications -Recommended to check out Dr. [facility] Weight management program. Assessment & Plan (11/08/2022 12:05 PM EDT): -Defers Bariatric Surgery at this time and wants to try and lose weight on her own -Continue working on lifestyle modifications -continue daily walking Obstructive sleep apnea syndrome 07/28/2012 Assessment & Plan (10/01/2024 11:29 PM EST): -01/10/21, PFT showed no obstructive or restrictive airway disease -Sleep Study on 01/11/21 showed Mild SUREKHA, CPAP not recommended -Patient reports improvement of her symptoms. Will not order sleep study or sleep medicine clinic referral at this time. Assessment & Plan (06/16/2024 2:14 PM EDT): -01/10/21, PFT showed no obstructive or restrictive airway disease -Sleep Study on 01/11/21 showed Mild SUREKHA, CPAP not recommended -Patient reports improvement of her symptoms. Will not order sleep study or sleep medicine clinic referral at this time. Assessment & Plan (11/15/2023 10:38 AM EDT): -01/10/21, PFT showed no obstructive or restrictive airway disease -Sleep Study on 01/11/21 showed Mild SUREKHA, CPAP not recommended -Pt states she snores, and wakes up feeling very tired -referred to sleep medicine clinic; checking its status Assessment & Plan (10/03/2023 4:27 AM EST): 01/10/21, PFT showed no obstructive or restrictive airway disease Sleep Study on 01/11/21 showed Mild SUREKHA, CPAP not recommended -Pt states she snores, and wakes up feeling very tired -referred to sleep medicine clinic Assessment & Plan (05/24/2023 2:18 PM EDT): 01/10/21, PFT showed no obstructive or restrictive airway disease Sleep Study on 01/11/21 showed Mild SUREKHA, CPAP not recommended -Pt states she snores, and wakes up feeling very tired -will refer to sleep medicine clinic Assessment & Plan (03/15/2023 4:23 PM EDT): 01/10/21, PFT showed no obstructive or restrictive airway disease Sleep Study on 01/11/21 showed Mild SUREKHA, CPAP not recommended -Pt states she snores, and wakes up feeling very tired -will order another Sleep Study Assessment & Plan (11/17/2022 5:50 PM EDT): 01/10/21, PFT showed no obstructive or restrictive airway disease Sleep Study on 01/11/21 showed Mild SUREKHA, CPAP not recommended -Pt states she snores, and wakes up feeling very tired -will order another Sleep Study Resolved Problems Problem Noted Date Diagnosed Date Resolved Date Abnormal TSH 11/08/2022 03/15/2023 Assessment & Plan (11/08/2022 12:01 PM EDT): 12/08/20 TSH 5.42 -was on Levothyroxine 50mcg -Pt stopped taking Levothyroxine and requested to restart the medication -will repeat labs Encounters Date Type Department Care Team Description 11/02/2024 Refill [facility] [address] [place] [id number] Elizabeth Garcia, RN 10/30/2024 Population Health Risk Score [facility] ([facility] Department [address] [phone] Provider, Population Health Generic 10/08/2024 Telephone [facility] [address] [place] [address] Claribel Shi MD Durable Medical Equipment 10/08/2024 Refill [facility] [address] [place] [address] Claribel Shi MD 10/01/2024 10:30 AM EST Office Visit [facility] [address] [place] [phone] Claribel Shi MD 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 (Primary Dx); Vitamin D deficiency; Calculus of gallbladder without cholecystitis without obstruction; Elevated BP without diagnosis of hypertension; Obstructive sleep apnea syndrome; Chronic pain of both shoulders; Pain in both hands; Pain in both wrists; Intractable episodic headache, unspecified headache type; Blurry vision; Dietary counseling; Exercise counseling; Class 3 severe obesity due to excess calories with serious comorbidity and body mass index (BMI) of 60.0 to 69.9 in adult (CMS/HCC); Class 3 severe obesity due to excess calories without serious comorbidity with body mass index (BMI) of 60.0 to 69.9 in adult ([facility]/HCC); Chronic pain of both hips; Migraine without aura and without status migrainosus, not intractable; Chronic nonintractable headache, unspecified headache type 10/01/2024 Travel 09/29/2024 Telephone [facility] [address] [place] [phone] Imani Obando MA chart prep (..) 09/17/2024 Patient Outreach [address] [id number] Claribel Shi MD Care Coordination ([facility] outreach for SDOH PT-1 and food needs-referral completed /) 09/17/2024 Patient Outreach [address] [phone] Claribel Shi MD Pre-visit Planning (SDOH Screening positive and Tobacco screening negative) from Last 3 Months Immunizations Name Administration Dates Next Due HPV, Quadrivalent 12/02/2009 Hep A, Adult 06/16/2024,11/14/2023 Influenza, Split (incl. purified surface antigen ) 07/28/2012 Influenza, seasonal, injectable, preservative fr ee 06/16/2024 Tdap 02/09/2016 Family History Medical History Relation Name Comments Stomach cancer Maternal Grandmother Relation Name Status Comments Maternal Grandmother Social History Tobacco Use Types Packs/Day Years Used Date Smoking Tobacco: Never Passive Smoke Exposure: Never Smokeless Tobacco: Never Tobacco Cessation:Counseling Given: Not Answered Alcohol Use Standard Drinks/Week Comments Not Currently [...] Orientation Straight 06/18/2022 10 :21 AM EDT Last Filed Vital Signs Vital Sign Reading Time Taken Comments Blood Pressure 153/102 10/01/2024 10:47 AM EST Pulse 73 10/01/2024 10:47 AM EST Temperature 36.2 ??C (97.1 ??F) 10/01/2024 10:[address] Respiratory Rate 18 10/01/2024 10:47 AM EST Oxygen Saturation 99% 10/01/2024 10:47 AM EST Inhaled Oxygen Concentration - - Weight 189 kg (417 lb) 10/01/2024 10:47 AM EST Height 172.7 cm (5' 8 ) 03/26/2024 10:51 AM EDT Body Mass Index 63.4 03/26/2024 10:51 AM EDT Plan of Treatment Upcoming Encounters Date Type Department Care Team (Late st Contact Info) Description 12/31/2024 11:30 AM EDT [facility] [facility] [address] [place], [place] [phone] Claribel Shi MD [address] [place], [place] [phone] Health Maintenance Due Date Last Done Comments HPV Vaccines (2 - 3-dose series) 12/30/2009 12/02/2009 COVID-19 Vaccine (2023-2 5 season) 2024 Cervical Cancer Screening 03/26/2025 Family Planning (PISQ) 03/26/2025 03/26/2024 HPV/Cotest 03/26/2025 03/26/2024 Pap Smear 03/26/2025 03/26/2024 Alcohol/Substance Use Screening 06/16/2025 06/16/2024 SDOH Screening 09/17/2025 09/17/2024 Depression Screening 10/01/2025 10/01/2024, 10/01/2024 Tobacco Screening 10/01/2025 10/01/2024 DTaP/Tdap/Td Vaccines (2 - T d or Tdap) 02/08/2026 02/09/2016 Lipid Panel 11/13/2028 11/14/2023, 11/08/2022 Zoster Vaccines (1 of 2) 2039 RSV Patients and Patients Aged 60 years or older (1 - 1-dose 75+ series) 01/18/2064 HIV Screening Completed 11/08/2022, 12/08/2020 Hepatitis C Screening Completed 11/08/2022 , 12/08/2020 Hepatitis A Vaccines Completed 06/16/2024, 11/14/2023 Influenza Vaccine Completed 06/16/2024, 07/28/2012 HIB Vaccines Aged Out No longer eligi ble based on patient's age to complete this topic Hepatitis B Vaccines Discontinued IPV Vaccines Aged Out No longer eligi ble based on patient's age to complete this topic Meningococcal Vaccine Aged Out No susy omer eligible based on patient's age to complete this topic Pneumococcal Vaccine: Pediatrics (0 to 5 Years) and At-Risk Patients (6 to 49) Years) Aged Out No longer eligible based on patient's age to complete this topic RSV under 20 months Aged Out No longe r eligible based on patient's age to complete this topic Rotavirus Vaccines Aged Out No longer eligible based on patient's age to complete this topic Procedures Procedure Name Priority Date/Time Associated Diagnosis Comments MR BRAIN WO CONTRAST Routine 10/12/2024 8:56 AM EST Elevated BP without diagnosis of hypertension Migraine without aura and without status migrainosus, not intractable Chronic nonintractable headache, unspecified headache type THINPREP IMAGING PAP AND HPV MRNA E6/E7 Routine 03/26/2024 11:14 AM EDT LIPID PANEL WITH REFLEX TO DIRECT LDL Routine 11/14/2023 10:59 AM EDT Elevated blood pressure reading without diagnosis of hypertension HEPATITIS C AB W/REFL TO HCV RNA, QN, PCR Routine 11/08/2022 12:54 PM EDT HIV 1/2 ANTIGEN/ANTIBODY, FOURTH GENERATION W/RFL Routine 11/08/2022 12:54 PM EDT from Last 3 Months or Most Recently Relevant to Health Maintenance Results * MR Brain w/o Contrast (10/12/2024 8:56 AM EST) Anatomical Region Laterality Modality Brain Magnetic Resonan ce 10/12/2024 8:56 AM EST Narrative 10/12/2024 8:57 AM EST ? [facility] ?[address] ?[place] [address] ? Magnetic Resonance Report ? Signed ? Patient: Jolanta,Coral ?MR#: [id number] ? : 1990 ?Acct:[id number] ? Age/Sex: 34 / F ?ADM Date: 10/10/24 ? Loc: HO.MRI ? Attending Dr: Claribel Shi MD ? Ordering Physician: Claribel Shi MD ?? Date of Service: 10/10/24 ?? Procedure(s): MR head/brain wo con ?? Accession Number(s): [id number] ? cc: Claribel Shi MD ? CLINICAL HISTORY: SKELTON, Blurry vision, concern for intracranial HTN ? MR Brain without gadolinium ? Comparison: None ? Findings: ?? No restricted diffusion. ?? No intracranial mass or hemorrhage. ?? No midline shift. No hydrocephalus. ?? Vascular flow voids are intact. ? The orbits are normal. ?? The sinuses and mastoid air cells are clear. ?? No focal bone lesion. ? IMPRESSION: ?? No acute findings. ? This document has been electronically signed by: Alfred Wynn MD on ?? 10/12/2024 08:56:07 ? Dictated By: ?Alfred Wynn MD ? Signed By: ?<Electronically signed by Alfred Wynn MD in OV> ?10/12/24 0857 ? DD/ ? TD/TT: 10/12/2456 ? Scrubber Machine Tender: ? Procedure Note Sosa Muro - 10/12/2024 [place] [address] Magnetic Resonance Report Signed Patient: Ivone Stover#: [id number] : 1990Acct:[id number] Age/Sex: 34 / FADM Date: 10/10/24 Loc: HO.MRI Attending Dr: Claribel Shi MD Ordering Physician: Claribel Shi MD Date of Service: 10/10/24 Procedure(s): MR head/brain wo con Accession Number(s): [id number] cc: Claribel Shi MD CLINICAL HISTORY: [place]EL[place], Blurry vision, concern for intracranial HTN MR Brain without gadolinium Comparison: None Findings: No restricted diffusion. No intracranial mass or hemorrhage. No midline shift. No hydrocephalus. Vascular flow voids are intact. The orbits are normal. The sinuses and mastoid air cells are clear. No focal bone lesion. IMPRESSION: No acute findings. This document has been electronically signed by: Alfred Wynn MD on 10/12/2024 08:56:07 Dictated By: Alfred Wynn MD Signed By: <Electronically signed by Alfred Wynn MD in OV> 10/12/24 0857 DD/ TD/TT: 10/12/24855 Scrubber Machine Tender: Claribel Shi MD IM MRI PROCEDURES Final Result * ThinPrep Imaging Pap and HPV mRNA E6/E7 (03/26/2024 11:14 AM EDT) HPV nRNA E6/E7 Not Detected Not Detected [facility] Comment:Methodology: Transcr iption-Mediated AmplificationThis assay detects E6/E7 viral messenger RNA (mRNA) from 14high-risk HPV types (16,18,31,33,35,39,45,51,52,56,58,59,66,68).Cervical sources are required for HPV testing.If a vaginal source from a patient who has had atotal hysterectomy with removal of cervix wassubmitted, please contact the testing laboratoryfor alternative testing options.For additional information, please refer tohttp://education.CHiWAO Mobile App/faq/JRE518g3(This link if provided for information/educational purposes only.)THIS TEST WAS PERFORMED AT:[facility] [place] [phone] WRIGHT MD SOURCE: SEE NOTE [facility] Comment:FRIABLE CERVIX Report Status: [facility] Clinical Information: SEE NOTE [facility] Comment:ROUTINE LMP: SEE NOTE [facility] Comment:03/16/24 Prev. PAP: SEE NOTE [facility] Comment:NONE GIVEN Prev. BX: SEE NOTE [facility] Comment:NONE GIVEN Statement Of Adequacy: SEE NOTE [facility] Comment:Satisfactory for nadya luation.Endocervical/transformation zone componentpresent. General Categorization: [facility] Interpretation/Result: SEE NOTE [facility] Comment:Cytology Results: Ne gative for intraepitheliallesion or malignancy. Cytology Comment SEE NOTE [facility] Comment:This Pap test has be en evaluated with computerassisted technology. Editor In Chief: SEE NOTE [facility] Comment:MSM, CT(ASCP)CT scre ening location: [address] [address] Review Editor In Chief: GRETCHEN [facility] Pathologist TNP [facility] PAP Infection [facility] See Note SEE NOTE [facility] Comment:EXPLANATORY NOTE:The Pap is a screening test for cervical cancer. It isnot a diagnostic test and is subject to false negativeand false positive results. It is most reliable when asatisfactory sample, regularly obtained, is submittedwith relevant clinical findings and history, and whenthe Pap result is evaluated along with historic andcurrent clinical information. 03/26/2024 11:1 4 AM EDT 03/26/2024 1:48 PM EDT Narrative [facility] - 03/31/2024 1:34 PM EDT SEE SCANNED RESULTS IN [id number] CERVIX us Chelsey Nava [facility] PATHOLOGY ORDERABLES Final Result [facility] [address] [place] [phone] * (ABNORMAL) Lipid Panel with Reflex to Direct LDL (11/14/2023 10:59 AM EDT) Triglycerides 133 <150 mg/dL [facility] Comment:Desirable Triglyceri de: less than 150 mg/dLBorderline High Triglyceride 150-199 mg/dLHigh Triglyceride: 200-499 mg/dLVery High Triglyceride: greater than or equal to 5OO mg/dL Cholesterol 206(H) <200 mg/dL [facility] Comment:Desirable Cholestero l: less than 200 mg/dLBorderline High Cholesterol: 200-239 mg/dLHigh Cholesterol: greater than 239 mg/dL LDL Cholesterol Calculated 135(H) <100 mg/dL [facility] Comment:Desirable LDL: less than 100 mg/dLNear Optimal/Above Optimal LDL: 110- 129 mg/dLBorderline High LDL: 130-159 mg/dLHigh LDL: 160-189 mg/dLVery High LDL: greater than or equal to 190 mg/dL HDL Cholesterol 45 >40 mg/dL [facility] Comment:Desirable HDL: great er than 40 mg/dL Note: This HDL assay may give artificially low results in patients with liver disease. Blood 11/14/2023 10:5 9 AM EDT 11/14/2023 1:15 PM EDT Claribel Shi MD LAB BLOOD ORDERABLES Final Resul t Performing Organization Address City/[facility]/ZIP Co de Phone Number [facility] [address] [place] [phone] * Hepatitis C Antibody with Reflex to HCV, RNA, Quantitative, Real-Time PCR (11/08/2022 12:54 PM EDT) Hepatitis C Antibody NON-REACT VALENCIA NON-REACT VALENCIA [employer] [place] [employer] Index 0.02 <1.00 [employer] [place] [employer] Comment: HCV antibody was non-reactive. There is no laboratory evidence of HCV infection. In most cases, no further action is required. However, if recent HCV exposure is suspected, a test for HCV RNA (test code 50652) is suggested. For additional information please refer to http://education.CHiWAO Mobile App/faq/UQP47p0 (This link is being provided for informational/ educational purposes only.) 11/08/2022 12:5 4 PM EDT 11/08/2022 12:56 PM EDT Narrative [facility] - 11/09/2022 8:38 PM EDT FASTING:YES FASTING: YES Claribel Shi MD LAB BLOOD ORDERABLES Final Resul t [facility] [address], [place] [address] [employer] [place] [employer] [address] [place] [phone] * HIV-1/2 Antigen and Antibodies, Fourth Generation, with Reflexes (11/08/2022 12:54 PM EDT) HIV Antigen/Antibody, 4th Generation NON-REAC TIVE NON-REAC TIVE [employer] [place] [facility] Comment: HIV-1 antigen and HIV-1/HIV-2 antibodies were not detected. There is no laboratory evidence of HIV infection. PLEASE NOTE: This information has been disclosed to you from records whose confidentiality may be protected by state law. ??If your state requires such protection, then the state law prohibits you from making any further disclosure of the information without the specific written consent of the person to whom it pertains, or as otherwise permitted by law. A general authorization for the release of medical or other information is NOT sufficient for this purpose. ?? For additional information please refer to http://education.CHiWAO Mobile App/faq/XKE904 (This link is being provided for informational/ educational purposes only.) The performance of this assay has not been clinically validated in patients less than 2 years old. 11/08/2022 12:5 4 PM EDT 11/08/2022 12:56 PM EDT [facility] - 11/09/2022 8:38 PM EDT FASTING:YES FASTING: YES us Claribel Shi MD LAB BLOOD ORDERABLES Final Resul t [facility] [address], [place] [address] [employer] [facility] [address] [place] [phone] from Last 3 Months or Most Recently Relevant to Health Maintenance Insurance [facility] STANDARD Care Teams Mercerizing Range Feeder Relationship Specialty Start Date End Date Claribel Shi MD [address] [place] [phone] PCP - General Family Medicine 03/20/12
--- OUTSIDE RECORDS SUMMARY | 2024-11-06 15:44 | XMS_ITS | Encounter Summary ---
Author Organization [employer] Address [address] [facility] [address] [place] [address] Care Team Providers Care Rabbler Name Role Phone Claribel Shi MD Primary Care Provider [phone] Encounter Details Date Type Department Care Team ([facility] st Contact Info) Description 02/13/2024 Orders Only [facility] [address] [place], [place] [phone] Claribel Shi MD [address] [place], [place] [phone] Social History Tobacco Use Types Packs/Day Years Used Date Smoking Tobacco: Never Passive Smoke Exposure: Never Smokeless Tobacco: Never Alcohol Use Standard Drinks/Week Comments Not Currently 0 (1 standard drink = 0.6 oz pur e alcohol) Depression Answer Date Recorded Patient Health Questionnaire-9 Score 0 05/23/2023 Housing Stability Answer Date Recorded What is your housing situation today? I have greg hernadez 06/06/[address] you li ve. Do you have problems with any of the following? None of the above 06/06/2023 Food Insecurity Answer Date Recorded Within the past 12 months, y ou worried that your food would run out before you got money to buy more: Never True 06/06/2023 Within the past 12 months,th e food you bought just didn't last and you didn't have enough money to get more: Never True Transportation Answer Date Recorded In the past 12 months, has l ack of transportation kept you from medical appts, meetings, work or from getting things needed for daily living? No 06/06/2023 Utilities Answer Date Recorded In the past 12 months, has t he electric, gas, oil or water [facility] threatened to shut off services in your home? No 06/06/2023 Depression Answer Date Recorded Patient Health Questionnaire-2 Score 0 05/23/2023 Comments Unknown Sex and Gender Information Value Date Recorded Sex Assigned at Female 06/18/2022 10:21 AM EDT Legal Sex Female 10:21 AM EDT Gender Identity Female 06/18/2022 10:21 AM EDT Sexual Orientation Straight 06/18/2022 10 :21 AM EDT documented as of this encounter Plan of Treatment Upcoming Encounters Date Type Department Care Team (Late st Contact Info) Description 12/31/2024 11:30 AM EDT Office Visit [facility] [address] [place] [address] Claribel Shi MD [address] [place] [address] documented as of this encounter Visit Diagnoses Not on filedocumented in this encounter Additional Health Concerns Assessment Noted Time PHQ-9 Depression Total Score: 0 05/23/20 23 11:55 AM EDT documented as of this encounter Care Teams Rabbler Relationship Specialty Start Date End Date Claribel Shi MD [address] [place] [phone] PCP - General Family Medicine 03/20/12 documented as of this encounter
--- OUTSIDE RECORDS SUMMARY | 2024-11-06 15:44 | XMS_ITS | Encounter Summary ---
Author Organization [employer] [facility] Address [address] [place] [address] 7 [place] [address] Care Team Providers Care Machine Precision Etcher Name Role Phone Claribel Shi MD Primary Care Provider [phone] Encounter Details Date Type Department Care Team (Late st Contact Info) Description 03/13/2023 Orders Only [facility] MEDICINE [address] [place] [address] [phone] Claribel Shi MD [address] [place] [address] [phone] Acquired hypothyroidism (Primary Dx) Social History Tobacco Use Types Packs/Day Years Used Date Smoking Tobacco: Never Passive Smoke Exposure: Never Smokeless Tobacco: Never Comments Unknown Sex and Gender Information Value [...] Description 12/31/2024 11:30 AM EDT Office Visit [facility] [address] [place] [address] [phone] Claribel Shi MD [address] [place] [address] [phone] documented as of this encounter Procedures Procedure Name Priority Date/Time Associated Diagnosis Comments TSH W/REFLEX TO FT4 Routine 05/23/2023 12:55 PM EDT Acquired hypothyroidism documented in this encounter Results * (ABNORMAL) TSH W/Reflex to FT4 (05/23/2023 12:55 PM EDT) TSH reflex Free T4 5.63(H) 0.32 - 4.0 uIU/mL [facility] Blood 05/23/2023 12:5 5 PM EDT 05/23/2023 4:01 PM EDT Claribel Shi MD LAB BLOOD ORDERABLES Final Resul t [facility] [address] [place] [phone] documented in this encounter Visit Diagnoses Diagnosis Acquired hypothyroidism- Primary Unspecified hypothyroidism documented in this encounter Care Teams Machine Precision Etcher Relationship Specialty Start Date End Date Claribel Shi MD [address] [place] [phone] PCP - General Family Medicine 03/20/12 documented as of this encounter
--- OUTSIDE RECORDS SUMMARY | 2024-11-06 15:44 | XMS_ITS | Encounter Summary ---
Author Organization [employer] Address [address] [facility] 7 [place] [address] Care Team Providers Care Section Beamer Name Role Phone Claribel Shi MD Primary Care Provider [phone] Reason for Visit * Reason Comments Med Refill Encounter Details Date Type Department Care Team ([facility] st Contact Info) Description 06/10/2024 Refill [facility] [address] [place], [place] [phone] Claribel Shi MD [address] [place] [address] Social History Tobacco Use Types Packs/Day Years [...] Recorded Patient Health Questionnaire-2 Score 0 05/23/2023 Internet Access Answer Date Recorded Internet Access [...] Description 12/31/2024 11:30 AM EDT Office Visit [facility] [address] [place] [address] Claribel Shi MD [address] [place] [address] documented as of this encounter Visit Diagnoses Not on filedocumented in this encounter Additional Health Concerns Assessment Noted Time PHQ-9 Depression Total Score: 0 05/23/20 23 11:55 AM EDT documented as of this encounter Care Teams Section Beamer Relationship Specialty Start Date End Date Claribel Shi MD [address] [place] [address] PCP - General Family Medicine 03/20/12 documented as of this encounter
--- OUTSIDE RECORDS SUMMARY | 2024-11-06 15:44 | XMS_ITS | Encounter Summary ---
Author Organization [employer] [facility] Address [address] [place] [address] 7 [place] [address] Care Team Providers Care Audio Operator Name Role Phone Claribel Shi MD Primary Care Provider [phone] Encounter Details Date Type Department Care Team (Late Contact Info) Description 03/29/2023 Orders Only [facility] [address] [place] [address] [phone] Claribel Shi MD [address] [place] [address] [phone] Bilateral hip pain (Primary Dx); Chronic pain of both knees Social History Tobacco Use Types Packs/Day Years [...] Encounters Date Type Department Care Team (Late Contact Info) Description 12/31/2024 11:30 AM EDT Office Visit [facility] [address] [place] [address] [phone] Claribel Shi MD [address] [place] [address] [phone] documented as of this encounter Visit Diagnoses Diagnosis Bilateral hip pain- Primary Pain in joint, pelvic region and thigh Chronic pain of both knees documented in this encounter Care Teams Audio Operator Relationship Specialty Start Date End Date Claribel Shi MD [address] [place] [address] PCP - General Family Medicine 03/20/12 documented as of this encounter
--- OUTSIDE RECORDS SUMMARY | 2024-11-06 15:44 | XMS_ITS | Encounter Summary ---
Author Organization [employer] Address [address] [facility] 7 [place] [address] Care Team Providers Care Quick Technician Name Role Phone Claribel Shi MD Primary Care Provider [phone] Encounter Details Date Type Department Care Team ([facility] st Contact Info) Description 10/30/2024 Population Health Risk Score [facility] ([facility]) Department [address] [place] [phone] Provider, Population Health Generic Social History Tobacco Use Types Packs/Day Years [...] 12/31/2024 11:30 AM EDT Office Visit [facility] [address] [place] [address] Claribel Shi MD [address] [place] [address] documented as of this encounter Visit Diagnoses Not on filedocumented in this encounter Additional Health Concerns Assessment Noted Time PHQ-9 Depression Total Score: 0 10/01/19 25 11:02 AM EST documented as of this encounter Care Teams Quick Technician Relationship Specialty Start Date End Date Claribel Shi MD [address] [place] [address] PCP - General Family Medicine 03/20/12 documented as of this encounter
--- OUTSIDE RECORDS SUMMARY | 2024-11-06 15:44 | XMS_ITS | Encounter Summary ---
Author Organization [employer] Address [address] [facility] 7 [place] [address] Care Team Providers Care Mosquito Sprayer Name Role Phone Claribel Shi MD Primary Care Provider [phone] Reason for Visit * Reason Onset Date Comments Medication Question 02/12/2024 Encounter Details Date Type Department Care Team ([facility] Contact Info) Description 02/12/2024 Telephone [facility] [address] [place], [place] [phone] Claribel Shi MD [address] [place], [place] [phone] Medication Question Social History Tobacco Use Types Packs/Day Years [...] encounter Miscellaneous Notes * Telephone Encounter - Claribel Shi MD - 02/13/2024 6:00 AM EDT Dose increased * Telephone Encounter - Laura Márquez RN - 02/12/2024 3:07 PM EDT TC placed to pt in regards to concerns with current Wegovy dosage. Pt is currently prescribed 0.25 mg and feels that at this dosage the weight loss has been minimal. Currently the pt is on the secondmonth of treatment and has lost ten pounds. Pt also feels that appetite suppression is at a minimum. RN advised that PCP will be made aware of concern and pt will be advised if any changes made in current dose. Pt stated understanding and had no further questions. * Telephone Encounter - Wanda Maradiaga - 02/12/2024 1:30 PM EDT Tc from pt requesting a call back to clarify if she has to increases dose for medication Semaglutide-Weight Management (Wegovy) 0.25 MG/0.5ML solution auto- injector . documented in this encounter Plan of Treatment Upcoming Encounters Date Type Department Care Team ([facility] st Contact Info) Description 12/31/2024 11:30 AM EDT Office Visit [facility]INE [address] [place] [address] Claribel Shi MD [address] [place] [address] documented as of this encounter Visit Diagnoses Not on filedocumented in this encounter Additional Health Concerns Assessment Noted Time PHQ-9 Depression Total Score: 0 05/23/20 23 11:55 AM EDT documented as of this encounter Care Teams Mosquito Sprayer Relationship Specialty Start Date End Date Claribel Shi MD [address] [place] [phone] PCP - General Family Medicine 03/20/12 documented as of this encounter
--- OUTSIDE RECORDS SUMMARY | 2024-11-06 15:44 | XMS_ITS | Encounter Summary ---
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 I have greg hernadez 05/28/[address] you li ve. Do you have problems with any of the following? None of the above 05/28/2023 Food Insecurity Answer Date Recorded Within the past 12 months, y ou worried that your food would run out before you got money to buy more: Never True 05/28/2023 Within the past 12 months,th e food you bought just didn't last and you didn't have enough money to get more: Never True 05/2023 Transportation Answer Date Recorded In the past 12 months, has l ack of transportation kept you from medical appts, meetings, work or from getting things needed for daily living? No 05/28/2023 Utilities Answer Date Recorded In the past 12 months, has t he electric, gas, oil or water company threatened to shut off services in your home? No 05/28/2023 Depression Answer Date Recorded Patient Health Questionnaire-2 [...] Description 12/31/2024 11:30 AM EDT Office Visit [facility] [address] [place] [address] [phone] Claribel Shi MD [address] [place] [address] [phone] Scheduled Orders Name Type Priority Associated Diagnoses Orde r Schedule T4, Free Lab Routine 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 Expected: 05/24/2023 (Approximate), Expires: 05/24/2024 TSH Lab Routine 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 Expected: 05/24/2023 (Approximate), Expires: 05/24/2024 documented as of this encounter Visit Diagnoses Diagnosis Hypothyroidism due to Lius Fernando's thyroiditis- Primary documented in this encounter Additional Health Concerns Assessment Noted Time PHQ-9 Depression Total Score: 0 05/23/20 23 11:55 AM EDT documented as of this encounter Care Teams Collection Coordinator Relationship Specialty Start Date End Date Claribel Shi MD [address] [place] [address] [phone] PCP - General Family Medicine 03/20/12 documented as of this encounter
== END 2024-11-06 13:23 | disposition home or self-care (01) ==
LOC: HO.NEURO 13:22
PROVIDERS: PCP Family Medicine; Visit Provider Family Medicine
DX: M79.641 Pain in right hand (principal); M79.642 Pain in left hand; M25.531 Pain in right wrist; M25.532 Pain in left wrist
CPT/HCPCS: 95886; 95911

== ENCOUNTER → 2024-11-06 13:25 | Outpatient (BNV) | payer MEDICAID, SELFPAY | PROVIDERS: PCP Family Medicine; Visit Provider Physical Medicine & Rehabilitation | DX: G56.03 Carpal tunnel syndrome, bilateral upper limbs (principal) | CPT/HCPCS: 95886; 95911 ==

== ENCOUNTER 2024-12-31 12:12 | Outpatient (REF) | payer MEDICAID, SELFPAY ==
--- OUTSIDE RECORDS SUMMARY | 2024-12-31 13:06 | XMS_ITS | Encounter Summary ---
Author Organization [employer] Address [address] [place] [address] 7 [place] [address] Care Team Providers Care District Associate Judge Name Role Phone Claribel Shi MD Primary Care Provider [phone] Reason for Visit * Reason Comments Care Coordination CM/CHW outreach Encounter Details Date Type Department Care Team (Latest Contact Info) Description 12/29/2024 Patient Outreach [facility] [address] [place] [address] [phone] Claribel Shi MD 230 [place] [address] Care Coordination (CM/CHW outreach) Social History Tobacco Use Types Packs/Day Years [...] AM EDT documented as of this encounter Progress Notes * Ashwini Alfaro - 12/29/2024 1:52 PM EDT CHW Ashwini Alfaro, placed outbound call to patient introducing herself from [facility] CM Department, in regards to offering services. Patient's name and was confirmed. Patient agreesto participate in program. Appt. for initial assessment scheduled for 01/21/25 @10AM tele with CM Casey Obando RN. CHW reinforced direct contact information or CM for any additional questions or concerns and extended clinic hours on Mondays and Wednesdays, and Walk-In Urgent Care Located in [facility] of [facility]. Patient provided with after-hours line for [facility], ,which offer night time triage service and option to transfer to customer relations representative provider if needed. Patient verbalizes understanding, and able to repeat back to medical technical writer. documented in this encounter Plan of Treatment Upcoming Encounters Date Type Department Care Team (Late st Contact Info) Description 02/05/2025 11:30 AM EDT Telemedicine [facility] [address] [place] [address] 04/01/2025 11:00 AM EDT Procedure Visit [facility] [address] [place] [address] Chelsey Nava CNM [address] [place] [address] documented as of this encounter Visit Diagnoses Not on filedocumented in this encounter Additional Health Concerns Assessment Noted Time PHQ-9 Depression Total Score: 0 10/01/19 25 11:02 AM EST documented as of this encounter Care Teams District Associate Judge Relationship Specialty Start Date End Date Claribel Shi MD [address] [place] [phone] PCP - General Family Medicine 03/20/12 documented as of this encounter
--- OUTSIDE RECORDS SUMMARY | 2024-12-31 13:06 | XMS_ITS | Encounter Summary ---
Author Organization [employer] Address [address] [place] [address] 7 [place] [address] Care Team Providers Care Director Of Food And Nutrition Services Name Role Phone Claribel Shi MD Primary Care Provider [phone] Reason for Referral * Consultation (Routine) - Pending Review Specialty Diagnoses / Procedures Referred By Dashawn fraser Referred To Contact Orthopaedic Surgery Diagnoses Calculus of gallbladder without cholecystitis without obstruction Claribel Shi MD [address] [place] [phone] Phone: tel: fax: Referral ID Status Reason Start Date Expiration Date Visits Requested Visits Authorized [id number] Pending Review Specialty Services Required 12/31/2024 12/31/2025 1 1 Reason for Visit * Reason Comments Follow-up thryoid Encounter Details Date Type Department Care Team (Latest Contact Info) Description 12/31/2024 11:30 AM EDT Office Visit [facility] [address] [place], [place] [phone] Claribel Shi MD [address] [place], [place] [phone] Calculus of gallbladder without cholecystitis without obstruction (Primary Dx) Social History Tobacco Use Types [...] AM EDT documented as of this encounter Last Filed Vital Signs Vital Sign Reading Time Taken Comments Blood Pressure 161/84 12/31/2024 11:34 AM EDT Pulse 78 12/31/2024 11:34 AM EDT Temperature 37.2 ??C (98.9 ??F) 12/31/2024 11:34 AM E DT Respiratory Rate 20 12/31/2024 11:34 AM EDT Oxygen Saturation 97% 12/31/2024 11:34 AM EDT Inhaled Oxygen Concentration - - Weight 193 kg (425 lb 9.6 oz) 12/31/2024 11:34 A M EDT Height 172.7 cm (5' 8 ) 12/31/2024 11:34 AM EDT Body Mass Index 64.71 12/31/2024 11:34 AM EDT documented in this encounter Plan of Treatment Upcoming Encounters Date Type Department Care Team (Late st Contact Info) Description 02/05/2025 11:30 AM EDT Telemedicine [address] [address] 04/01/2025 11:00 AM EDT Procedure Visit [address] [address] Chelsey Nava CNM [address] [place] [address] Scheduled Referrals Name Type Priority Associated Diagnoses Orde r Schedule Referral to Orthopaedic Surgery Outpatient Referral Routine Calculus of gallbladder without cholecystitis without obstruction Expected: 12/31/2024 (Approximate), Expires: 12/31/2025 documented as of this encounter Visit Diagnoses Diagnosis Calculus of gallbladder without cholecystitis without obstruction- Primary documented in this encounter Additional Health Concerns Assessment Noted Time PHQ-9 Depression Total Score: 0 10/01/19 25 11:02 AM EST documented as of this encounter Care Teams Director Of Food And Nutrition Services Relationship Specialty Start Date End Date Claribel Shi MD [address] [place] [phone] PCP - General Family Medicine 03/20/12 documented as of this encounter
--- OUTSIDE RECORDS SUMMARY | 2024-12-31 13:06 | XMS_ITS | Encounter Summary ---
Author Organization [employer] Address [address] [facility] 7t [place] [address] Care Team Providers Care Service Associate Name Role Phone Claribel Shi MD Primary Care Provider [phone] Encounter Details Date Type Department Care Team (Late st Contact Info) Description 02/13/2024 Orders Only [facility] [address] [place], [place] [phone] Claribel Shi MD 230 [place], [place] [phone] Social History Tobacco Use Types Packs/Day Years [...] Info) Description 02/05/2025 11:30 AM EDT Telemedicine [facility] [address] [place] [phone] 04/01/2025 11:00 AM EDT Procedure Visit [facility] [address] [place] [address] Chelsey Nava CNM [address] [place] [phone] documented as of this encounter Visit Diagnoses Not on filedocumented in this encounter Additional Health Concerns Assessment Noted Time PHQ-9 Depression Total Score: 0 05/23/20 23 11:55 AM EDT documented as of this encounter Care Teams Service Associate Relationship Specialty Start Date End Date Claribel Shi MD [address] [place] [phone] PCP - General Family Medicine 03/20/12 documented as of this encounter
--- OUTSIDE RECORDS SUMMARY | 2024-12-31 13:06 | XMS_ITS | Encounter Summary ---
Author Organization [employer] Address [address] [facility] 7t [place] [address] Care Team Providers Care Parts Assembler Name Role Phone Claribel Shi MD Primary Care Provider [phone] Reason for Visit * Reason Comments Med Refill Encounter Details Date Type Department Care Team (Late st Contact Info) Description 06/10/2024 Refill [facility] [address] [place], [place] [phone] Calribel Shi MD 230 [place] [address] Social History Tobacco Use Types Packs/Day Years [...] Info) Description 02/05/2025 11:30 AM EDT Telemedicine [facility] [address] [place] [phone] 04/01/2025 11:00 AM EDT Procedure Visit [facility] [address] [place] [address] Chelsey Nava CNM [address] [place] [phone] documented as of this encounter Visit Diagnoses Not on filedocumented in this encounter Additional Health Concerns Assessment Noted Time PHQ-9 Depression Total Score: 0 05/23/20 11:55 AM EDT documented as of this encounter Care Teams Parts Assembler Relationship Specialty Start Date End Date Claribel Shi MD [address] [place] [phone] PCP - General Family Medicine 03/20/12 documented as of this encounter
--- OUTSIDE RECORDS SUMMARY | 2024-12-31 13:06 | XMS_ITS | Encounter Summary ---
Author Organization [employer] Address [address] [facility] 7 [place] [address] Care Team Providers Care Aquarium Specialist Name Role Phone Claribel Shi MD Primary Care Provider [phone] Reason for Visit * Reason Onset Date Comments Medication Question 02/12/2024 Encounter Details Date Type Department Care Team ([facility] st Contact Info) Description 02/12/2024 Telephone [facility] [address] [place], [place] [phone] Claribel Shi MD [address] [place], [place] [phone] Medication Question Social History Tobacco Use Types [...] Info) Description 02/05/2025 11:30 AM EDT Telemedicine [facility] [address] [place] [address] 04/01/2025 11:00 AM EDT Procedure Visit [facility] [address] [place] [address] Chelsey Nava CNM [address] [place] [address] documented as of this encounter Visit Diagnoses Not on filedocumented in this encounter Additional Health Concerns Assessment Noted Time PHQ-9 Depression Total Score: 0 05/23/20 11:55 AM EDT documented as of this encounter Care Teams Aquarium Specialist Relationship Specialty Start Date End Date Claribel Shi MD [address] [place] [address] PCP - General Family Medicine 03/20/12 documented as of this encounter
--- OUTSIDE RECORDS SUMMARY | 2024-12-31 13:06 | XMS_ITS ---
Author Organization [employer] Address [address] [place] [address] 7 [place] [address] Care Team Providers Care Correspondence Specialist Name Role Phone Claribel Shi MD Primary Care Provider [phone] CHW Complex Status:Outreach In Progress (Enrolling) Start date:12/23/2024 Enrollment reason:ADT Feed Overview ADT- [facility] ED 12/22/24. Please outreach for enrollment. Case Team Name Relationship Phone Ashwini Alfaro(Responsible Staff) [phone] Continued Care and Services Coordination
--- OUTSIDE RECORDS SUMMARY | 2024-12-31 13:06 | XMS_ITS | Clinical Summary ---
Author Organization [employer] Address [address] [place] [address] 7t [place] [address] Care Team Providers Care Head Kiln Operator Name Role Phone Claribel Shi MD Primary Care Provider [phone] Allergies No known active allergies Medications ondansetron (Zofran) 4 MG tablet Take 1 or 2 tablets by mouth every 8 hours as needed for severe nausea / vomiting 45 tablet 1 03/12/20 23 Active Blood Pressure Monitor kit Check blood pressure once daily and as needed 1 kit 11/14/19 24 Active D3 Super Strength 50 MCG (1999 UT) capsule TAKE 1 CAPSULE (50 MCG) BY MOUTH IN THE MORNING 90 capsule 3 03/26/20 24 Active Vit-Fe Fumarate-FA ( Plus) 27-1 MG tablet One tablet by mouth daily 30 tablet 11 03/26/20 24 Active levothyroxine (Synthroid, Levoxyl) 75 MCG tablet TAKE 1 TABLET BY MOUTH BEFORE BREAKFAST 90 tablet 3 06/22/20 24 Active ibuprofen 800 MG tablet Take 1 tablet (800 mg) by mouth every 8 (eight) hours if needed for mild pain, moderate pain or fever. 90 tablet 1 01/01/20 25 Active Tirzepatide-We ight Management (Zepbound) 10 MG/0.5ML solution auto-injector Inject 0.5 mL (10 mg) under the skin 1 (one) time per week. 2 mL 11 01/01/20 25 Active topiramate (Topamax) 25 MG tablet TAKE 1 TABLET BY MOUTH AT BEDTIME 90 tablet 3 12/30/19 24 025 Discontinued(Me d list cleanup (will not trigger notification to Pharmacy)) Tirzepatide-We ight Management 7.5 MG/0.5ML solution auto-injector Inject 0.5 mL (7.5 mg) under the skin 1 (one) time per week. 2 mL 11 10/01/19 025 Discontinued(Do se adjustment) naproxen (Naprosyn) 500 MG tablet TAKE 1 TABLET BY MOUTH TWICE DAILY NEEDED FOR PAIN 30 tablet 2 10/08/19 25 025 Discontinued(Al ternate therapy) Tirzepatide-We ight Management (Zepbound) 7.5 MG/0.5ML solution auto-injector Inject 0.5 mL (7.5 mg) under the skin 1 (one) time per week. 2 mL 11/03/19 025 Discontinued(Do se adjustment) Active Problems Problem Noted Date Diagnosed Date Chronic headache 10/03/2024 Assessment & Plan (10/03/2024 5:02 PM EST): - multifactorial: migraine; SUREKHA; - evaluate for intracranial hypertension - consider sleep study / evaluation for SUREKHA (patient declined because she was sleeping better since she started losing weight) - currently being treated as migraine - check lab - refer to neurologist - refer to equities trader for blurry vision Chronic pain of both [...] (11/15/2023 10:40 AM EDT): - seen by top lift scourer and received steroid injection, which was very effective -x-ray on 03/2018 showed small ankle effusion and moderate plantar calcaneal spur -X-ray showed b/l heel spurs, right greater than left -Continue to wear comfortable shoes, apply ice, and home exercise program Assessment & Plan (10/03/2023 4:28 AM EST): B/l foot pain, previously seen by top lift scourer -referred to top lift scourer in [facility] 2022; still on wait list -x-ray on 03/2018 showed small ankle effusion and moderate plantar calcaneal spur -X-ray showed b/l heel spurs, right greater than left -Pt was re-referred to Dr. Rivero in November 2022 and May 2023 -Continue to wear comfortable shoes, apply ice, and home exercise program Assessment & Plan (05/24/2023 2:20 PM EDT): B/l foot pain, previously seen by top lift scourer -referred to top lift scourer in [facility] 2022; still on wait list -x-ray on [...] EDT): B/l foot pain, previously seen by top lift scourer -referred to top lift scourer in [facility] 2022; still on wait list -xray on 03/2018 showed small ankle effusion and moderate plantar calcaneal spur -repeat X-ray and consider referring to Dr. Alfaro for injection or NEOS -Continue to wear comfortable shoes, apply ice, and home exercise program Assessment & Plan (11/17/2022 5:51 PM EDT): B/l foot pain, previously seen by top lift scourer -She is interested in returning to top lift scourer -xray on 03/2018 showed small ankle effusion [...] (10/02/2024 10:08 AM EST): -previously seen by [facility] W[facility] management program. -Continue working on lifestyle modifications -Discussed about Dr. Dove's Weight management program. -Previously on wegovy 1.7 mg weekly. -Currently on tirzepatide, (Zepbound), 5 mg weekly since May 2024. Increase to 7.5 mg weekly. Assessment & Plan (06/16/2024 2:16 PM EDT): -previously seen by [facility] Wt management program. -Continue working on lifestyle modifications -Recommended to check out Dr. Dove's Weight management program. -Currently on wegovy 1.7 mg weekly. Consider changing to zepbound. Assessment & Plan (11/15/2023 10:43 AM EDT): -previously seen by [facility] Wt management program. -Continue working on lifestyle modifications -Recommended to check out Dr. Dove's Weight management program. -Will try GLP-1 agonist Assessment & Plan (10/03/2023 4:28 AM EST): -previously seen by [facility] Wt management program. -Continue working on lifestyle modifications -Recommended to check out Dr. Dove[facility] Weight management program. Assessment & Plan (05/24/2023 2:22 PM EDT): -previously seen by [facility] Wt management program. -Continue working on lifestyle modifications -Recommended to check out Dr. Dove[facility] Weight management program. Assessment & Plan (03/15/2023 4:32 PM EDT): -previously seen by [facility] Wt management program. -Continue working on lifestyle [...] Encounters Date Type Department Care Team Description 12/31/2024 11:30 AM EDT Office Visit [facility] [address] [place] [address] [phone] Claribel Shi MD Calculus of gallbladder without cholecystitis without obstruction (Primary Dx) 12/31/2024 Travel 12/31/2024 Patient Outreach [facility] [address] [place] [address] [phone] Claribel Shi MD 12/30/2024 Telephone [facility] [address] [place] [address] 48923 Claribel Shi MD chartprep 12/29/2024 Patient Outreach [facility] [address] [place] [address] [phone] Claribel Shi MD Care Coordination (CM/CHW outreach) 12/23/2024 Patient Outreach [facility] [address] [place] [address] [phone] Claribel Shi MD Care Coordination (CHW chart review) 12/23/2024 Patient Outreach [facility] [address] [place] [address] [phone] Claribel Shi MD Care Management (C3CM- chart review) 12/23/2024 Patient Outreach [facility] [address] [place] [address] [phone] Claribel Shi MD 12/15/2024 Refill [facility] [address] [place] [address] Claribel Shi MD 11/16/2024 Telephone [facility] [address] [place] [address] [phone] Claribel Shi MD 11/02/2024 Refill [facility] [address] [place] [phone] Elizabeth Garcia RN 10/30/2024 Population Health Risk Score [facility] [address] [place] [phone] Provider, Population Health Generic 10/08/2024 Telephone [facility] [address] [place] [address] Claribel Shi MD Durable Medical Equipment 10/08/2024 Refill [facility] [address] [place] [phone] Claribel Shi MD from Last 3 Months Immunizations Immunization Administration Dates Next Due HPV, Quadrivalent 12/02/2009 [...] Mass Index 64.71 12/31/2024 11:34 AM EDT Plan of Treatment Upcoming Encounters Date Type Department Care Team (Late st Contact Info) Description 02/05/2025 11:30 AM EDT Telemedicine [facility] [address] [place] [phone] 04/01/2025 11:00 AM EDT Procedure Visit [facility] [address] [place] [address] Chelsey Nava, CN [address] [place] [address] Health Maintenance Due Date Last Done Comments [...] patient's age to complete this topic Meningococcal B Vaccine Aged Out No l onger eligible based on patient's age to complete [...] EST Narrative 10/12/2024 8:57 AM EST ? [facility] ?[address] ?[place] [address] ? Magnetic Resonance Report ? Signed ? Patient: Jolanta,Coral ?MR#: [id number] ? : 1990 ?Acct:[id number] ? Age/Sex: 34 / F ?ADM Date: 10/10/24 ? Loc: HO.MRI ? Attending Dr: Claribel Shi MD ? Ordering Physician: Claribel Shi MD ?? Date of Service: 10/10/24 ?? Procedure(s): MR head/brain wo con ?? Accession Number(s): [id number] ? cc: Claribel Shi MD ? CLINICAL [...] MD in OV> ?10/12/24 0857 ? DD/ 0856 ? TD/TT: 10/12/24 0856 ? Cutter Inspector: ? Procedure Note Bhaskar, Sosa - 10/12/[address] [address] Magnetic Resonance Report Signed Patient: Ivone Stover#: [id number] : 1990Acct:[id number] Age/Sex: 34 / FADM Date: 10/10/24 Loc: HO.MRI Attending Dr: Claribel Shi MD Ordering Physician: Claribel Shi MD Date of Service: 10/10/24 Procedure(s): MR head/brain wo con Accession Number(s): [id number] cc: Claribel Shi MD CLINICAL HISTORY: SKELTON, [...] Wynn MD in OV> 10/12/24 0857 DD/ 0856 TD/TT: 10/12/24 0856 Cutter Inspector: Claribel Shi MD IM MRI PROCEDURES Final Result * ThinPrep Imaging Pap and HPV mRNA E6/E7 (03/26/2024 11:14 AM EDT) HPV nRNA E6/E7 Not Detected Not Detected [facility] Comment:Methodology: Transcr iption-Mediated AmplificationThis assay detects E6/E7 viral messenger RNA (mRNA) from 14high-risk HPV types (16,18,31,33,35,39,45,51,52,56,58,59,66,68).Cervical sources are required for HPV testing.If a vaginal source from a patient who has had atotal hysterectomy with removal of cervix wassubmitted, please contact the testing laboratoryfor alternative testing options.For additional information, please refer tohttp://education.[employer]/faq/BDO520p6(This link if provided for information/educational purposes only.)THIS TEST WAS PERFORMED AT:[facility] [address] [phone] WRIGHT MD SOURCE: SEE NOTE [facility] Comment:FRIABLE CERVIX Report Status: [facility] Clinical Information: SEE NOTE [facility] Comment:ROUTINE LMP: SEE NOTE [facility] Comment:03/16/24 Prev. PAP: SEE NOTE [facility] Comment:NONE GIVEN Prev. BX: SEE NOTE [facility] Comment:NONE GIVEN Statement Of Adequacy: SEE NOTE [facility] Comment:Satisfactory for nadya luation.Endocervical/transformation zone componentpresent. General Categorization: [facility] Interpretation/Result: SEE NOTE [facility] Comment:Cytology Results: Ne gative for intraepitheliallesion or malignancy. Cytology Comment SEE NOTE [facility] Comment:This Pap test has be en evaluated with computerassisted technology. Gasoline Finisher: SEE NOTE [facility] Comment:[place]M, CT(ASCP)CT scre ening location: [address] [address] Review Gasoline Finisher: [facility] Pathologist [facility] PAP Infection [facility] See Note SEE NOTE [facility] Comment:EXPLANATORY NOTE:The Pap is a [...] AM EDT 03/26/2024 1:48 PM EDT Narrative [facility] - 03/31/2024 1:34 PM EDT SEE SCANNED RESULTS IN [id number] CERVIX us Chelsey Nava CNM LAB PATHOLOGY ORDERABLES Final Result [facility] [address] [place] [address] [phone] * (ABNORMAL) Lipid Panel with Reflex to Direct LDL (11/14/2023 10:59 AM EDT) Triglycerides 133 <150 mg/dL [facility] Comment:Desirable Triglyceri de: less than 150 mg/dLBorderline High Triglyceride 150-199 mg/dLHigh Triglyceride: 200-499 mg/dLVery High Triglyceride: greater than or equal to 5OO mg/dL Cholesterol 206(H) <200 mg/dL [facility] Comment:Desirable Cholestero l: less than 200 mg/dLBorderline High Cholesterol: 200-239 mg/dLHigh Cholesterol: greater than 239 mg/dL LDL Cholesterol Calculated 135(H) <100 mg/dL [facility] Comment:Desirable LDL: less than 100 mg/dLNear Optimal/Above Optimal LDL: 110- 129 mg/dLBorderline High LDL: 130-159 mg/dLHigh LDL: 160-189 mg/dLVery High LDL: greater than or equal to 190 mg/dL HDL Cholesterol 45 >40 mg/dL [facility] Comment:Desirable HDL: great er than 40 mg/dL Note: This HDL assay may give artificially low results in patients with liver disease. Blood 11/14/2023 10:5 9 AM EDT 11/14/2023 1:15 PM EDT us Claribel Shi MD LAB BLOOD ORDERABLES Final Resul t [facility] [address] [place] [address] [phone] * Hepatitis C Antibody with Reflex to HCV, RNA, Quantitative, Real-Time PCR (11/08/2022 12:54 PM EDT) Hepatitis C Antibody NON-REACT VALENCIA NON-REACT VALENCIA [facility] [facility] Index 0.02 <1.00 [facility] [employer] [facility] Comment: HCV antibody was non-reactive. There is no laboratory evidence of HCV infection. In most cases, no further action is required. However, if recent HCV exposure is suspected, a test for HCV RNA (test code 06155) is suggested. For additional information please refer to http://Conformiq.[employer]/faq/XZH25o6 (This link is being provided for informational/ educational purposes only.) 11/08/2022 12:5 4 PM EDT 11/08/2022 12:56 PM EDT Narrative [facility] - 11/09/2022 8:38 PM EDT FASTING:YES FASTING: YES Claribel Shi MD LAB BLOOD ORDERABLES Final Resul t [facility] [address], [place] [address] [employer] [address] [place] [phone] * HIV-1/2 Antigen and Antibodies, Fourth Generation, with Reflexes (11/08/2022 12:54 PM EDT) HIV Antigen/Antibody, 4th Generation NON-REAC TIVE NON-REAC TIVE [facility] [place] [employer] Comment: HIV-1 antigen and HIV-1/HIV-2 antibodies were [...] ?? For additional information please refer to http://Conformiq.Behavio.[employer]/faq/DFX006 (This link is being provided for informational/ educational purposes only.) The performance of this assay has not been clinically validated in patients less than 2 years old. 11/08/2022 12:5 4 PM EDT 11/08/2022 12:56 PM EDT Narrative [facility] - 11/09/2022 8:38 PM EDT FASTING:YES FASTING: YES us Claribel Shi MD LAB BLOOD ORDERABLES Final Resul t [facility] [address] [facility], [place] [address] [facility] [address] [place] [address] from Last 3 Months or Most Recently Relevant to Health Maintenance Insurance [facility] Care Teams Head Kiln Operator Relationship Specialty Start Date End Date Claribel Shi MD [address] [place] [phone] PCP - General Family Medicine 03/20/12
--- OUTSIDE RECORDS SUMMARY | 2024-12-31 13:06 | XMS_ITS | Encounter Summary ---
Author Organization [employer] Address [address] [place] [address] 7[address] [place] [address] Care Team Providers Care Technical Writer And Editor Name Role Phone Claribel Shi MD Primary Care Provider [phone] Encounter Details Date Type Department Care Team (Late Contact Info) Description 03/29/2023 Orders Only [facility] [address] [place] [address] [phone] Claribel Shi MD [address] [place] [address] [phone] Bilateral hip pain (Primary Dx); Chronic pain [...] Department Care Team (Late Contact Info) Description 02/05/2025 11:30 AM EDT Telemedicine [facility] [address] [place] [address] [phone] 04/01/2025 11:00 AM EDT Procedure Visit [facility] [address] [place] [address] [phone] Chelsey Nava CNM [address] [place], [place] [phone] documented as of this encounter Visit Diagnoses Diagnosis Bilateral hip pain- Primary Pain in joint, pelvic region and thigh Chronic pain of both knees documented in this encounter Care Teams Technical Writer And Editor Relationship Specialty Start Date End Date Claribel Shi MD [address] [place] [address] [phone] PCP - General Family Medicine 03/20/12 documented as of this encounter
--- OUTSIDE RECORDS SUMMARY | 2024-12-31 13:06 | XMS_ITS | Encounter Summary ---
Author Organization [employer] Address [address] [facility] 7t [place] [address] Care Team Providers Care Manager French Name Role Phone Claribel Shi MD Primary Care Provider [phone] Encounter Details Date Type Department Care Team (Latest Contact Info) Description 12/31/2024 Travel Social History Tobacco Use Types Packs/Day Years [...] Info) Description 02/05/2025 11:30 AM EDT Telemedicine [facility] [address] [place] [phone] 04/01/2025 11:00 AM EDT Procedure Visit [facility] [address] [place] [address] Chelsey Nava CNM [address] [place] [address] documented as of this encounter Visit Diagnoses Not on filedocumented in this encounter Additional Health Concerns Assessment Noted Time PHQ-9 Depression Total Score: 0 10/01/19 25 11:02 AM EST documented as of this encounter Care Teams Manager French Relationship Specialty Start Date End Date Claribel Shi MD [address] [place] [phone] PCP - General Family Medicine 03/20/12 documented as of this encounter
--- OUTSIDE RECORDS SUMMARY | 2024-12-31 13:06 | XMS_ITS | Encounter Summary ---
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 [...] Info) Description 02/05/2025 11:30 AM EDT Telemedicine [facility] [address] [place] [phone] 04/01/2025 11:00 AM EDT Procedure Visit [facility] [address] [place] [phone] Chelsey Nava CNM [address] [place] [phone] Scheduled Orders Name Type Priority Associated Diagnoses Orde r Schedule T4, Free Lab Routine 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 Expected: 05/24/2023 (Approximate), Expires: 05/24/2024 TSH Lab Routine 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
--- OUTSIDE RECORDS SUMMARY | 2024-12-31 13:06 | XMS_ITS | Encounter Summary ---
Author Organization [employer] Address [address] [place] [address] 7 [place] [address] Care Team Providers Care Language Instructor Name Role Phone Claribel Shi MD Primary Care Provider [phone] Encounter Details Date Type Department Care Team (Late st Contact Info) Description 03/13/2023 Orders Only [facility] [address] [place] [address] [phone] Claribel Shi MD [address] [place] [address] [phone] Acquired hypothyroidism (Primary Dx) Social History Tobacco [...] Info) Description 02/05/2025 11:30 AM EDT Telemedicine [facility] [address] [place] [address] [phone] 04/01/2025 11:00 AM EDT Procedure Visit [facility] [address] [place] [address] [phone] Chelsey Nava CNM [address] [place] [address] [phone] documented as of this encounter Procedures Procedure Name Priority Date/Time Associated Diagnosis Comments TSH W/REFLEX TO FT4 Routine 05/23/2023 12:55 PM EDT Acquired hypothyroidism documented in this encounter Results * (ABNORMAL) TSH W/Reflex to FT4 (05/23/2023 12:55 PM EDT) TSH reflex Free T4 5.63(H) 0.32 - 4.0 uIU/mL [facility] Blood 05/23/2023 12:5 5 PM EDT 05/23/2023 4:01 PM EDT us Claribel Shi MD LAB BLOOD ORDERABLES Final Resul t Performing Organization Address City/State/[facility] Co de Phone Number [facility] [address] [place] [phone] documented in this encounter Visit Diagnoses Diagnosis Acquired hypothyroidism- Primary Unspecified hypothyroidism documented in this encounter Care Teams Language Instructor Relationship Specialty Start Date End Date Claribel Shi MD [address] [place] [phone] PCP - General Family Medicine 03/20/12 documented as of this encounter
--- OUTSIDE RECORDS SUMMARY | 2024-12-31 13:06 | XMS_ITS | Encounter Summary ---
Author Organization [employer] Address [address] [facility] 7 [place] [address] Care Team Providers Care Office Aide Name Role Phone Claribel Shi MD Primary Care Provider [phone] Reason for Visit * Reason Onset Date Comments chartprep 12/30/2024 Encounter Details Date Type Department Care Team ([facility] st Contact Info) Description 12/30/2024 Telephone [facility] [address] [place], [place] [phone] Claribel Shi MD [address] [place], [place] [phone] chartprep Social History Tobacco Use Types Packs/Day Years [...] encounter Miscellaneous Notes * Telephone Encounter - Emma Núñez [place] - 12/30/2024 2:49 PM EDT ..Chart Prep Labs: not done Images: not applicable Vaccines due: Covid Due and HPV Referrals: Not applicable Screenings: Not Applicable Overdue care gaps: Disability and Oral Health documented in this encounter Plan of Treatment Upcoming Encounters Date Type Department Care Team (Late st Contact Info) Description 02/05/2025 11:30 AM EDT Telemedicine [facility] [address] [place] [phone] 04/01/2025 11:00 AM EDT Procedure Visit [facility] [address] [place] [phone] Chelsey Nava CNM [address] [place] [address] documented as of this encounter Visit Diagnoses Not on filedocumented in this encounter Additional Health Concerns Assessment Noted Time PHQ-9 Depression Total Score: 0 10/01/19 25 11:02 AM EST documented as of this encounter Care Teams Office Aide Relationship Specialty Start Date End Date Claribel Shi MD [address] [place] [phone] PCP - General Family Medicine 03/20/12 documented as of this encounter
--- OUTSIDE RECORDS SUMMARY | 2024-12-31 13:06 | XMS_ITS ---
Author Organization [employer] Address [address] [place] [address] 7 [place] [address] Care Team Providers Care Panelboard Tank Pumper Name Role Phone Claribel Shi MD Primary Care Provider [phone] CM Complex Status:Outreach In Progress (Enrolling) Start date:12/23/2024 Enrollment reason:ADT Feed Overview ADT- [facility] ED 12/22/24 Case Team Name Relationship Phone Casey Obando RN(Responsible Staff) Registered Nurse [phone] Continued Care and Services Coordination
--- OUTSIDE RECORDS SUMMARY | 2024-12-31 13:06 | XMS_ITS | Encounter Summary ---
Author Organization [employer] Address [address] [facility] 7t [place] [address] Care Team Providers Care Lpn Per Diem Name Role Phone Claribel Shi MD Primary Care Provider [phone] Encounter Details Date Type Department Care Team ([facility] st Contact Info) Description 12/31/2024 Patient Outreach [facility] MEDICINE [address] [place], [place] [phone] Claribel Shi MD [address] [place] [address] Social History Tobacco Use Types Packs/Day Years [...] Info) Description 02/05/2025 11:30 AM EDT Telemedicine [facility] MEDICINE [address] [place] [phone] 04/01/2025 11:00 AM EDT Procedure Visit [facility] [address] [place] [phone] Chelsey Nava CNM [address] [place] [address] documented as of this encounter Visit Diagnoses Not on filedocumented in this encounter Additional Health Concerns Assessment Noted Time PHQ-9 Depression Total Score: 0 10/01/19 25 11:02 AM EST documented as of this encounter Care Teams Lpn Per Diem Relationship Specialty Start Date End Date Claribel Shi MD [address] [place] [id number] PCP - General Family Medicine 03/20/12 documented as of this encounter
--- OUTSIDE RECORDS SUMMARY | 2024-12-31 13:06 | XMS_ITS | Encounter Summary ---
Author Organization [employer] Address [address] [facility] 7 [place] [address] Care Team Providers Care Band Manager Name Role Phone Claribel Shi MD Primary Care Provider [phone] Reason for Visit * Reason Onset Date Comments Med Refill 12/15/2024 Encounter Details Date Type Department Care Team ([facility] st Contact Info) Description 12/15/[address] [facility] [address] [place], [place] [phone] Claribel Shi MD [address] [place] [address] Social History Tobacco Use Types Packs/Day Years [...] encounter Miscellaneous Notes * Telephone Encounter - Rachel Rankin LPN - 12/15/2024 10:55 AM EDT Rx for Dme was documented in this encounter Plan of Treatment Upcoming Encounters Date Type Department Care Team (Late st Contact Info) Description 02/05/2025 11:[address] [facility] MEDICINE [address] [place] [phone] 04/01/2025 11:00 AM EDT Procedure Visit [facility] MED[facility]INE [address] [place] [phone] Chelsey Nava CNM [address] [place] [address] documented as of this encounter Visit Diagnoses Not on filedocumented in this encounter Additional Health Concerns Assessment Noted Time PHQ-9 Depression Total Score: 0 10/01/19 25 11:02 AM EST documented as of this encounter Care Teams Band Manager Relationship Specialty Start Date End Date Claribel Shi MD [address] [place] [address] PCP - General Family Medicine 03/20/12 documented as of this encounter
[2024-12-31 13:19] LABS: MANUAL DIFF FLAG NO
[2024-12-31 13:43] LABS: Basophils Percent Auto 0.3 % (0-2); Eosinophils Absolute Auto 0.2 X10*3/uL (0.0-0.4); Eosinophils Percent Auto 3.1 % (0-4); Hematocrit 37.7 % (37.0-47.0); Imm Gran Abs Auto 0.01 X10*3/uL (0.00-0.03); Imm Gran Pct Auto 0.2 % (0.0-0.4); Lymphocytes Absolute Auto 1.9 X10*3/uL (1.2-4.9); Lymphocytes Percent Auto 30.7 % (20-40); Mean Corpuscular HGB Conc 31.8 g/dl (31.0-35.0); Mean Corpuscular Hemoglobin 27.6 pg (27.0-33.0); Mean Corpuscular Volume 86.7 fL (80.0-98.0); Mean Platelet Volume 11.2 fL (9.4-12.3); Monocytes Absolute Auto 0.4 X10*3/uL (0.1-1.2); Monocytes Percent Auto 6.7 % (2-11); NRBC Pct Auto 0.3 /100WBC (0.0-0.2); Neutrophils Absolute Auto 3.6 x10*3/uL (2.0-8.3); Platelet Count 291 X10*3/uL (160-400); Red Blood Count 4.35 X10*6/uL (4.20-5.50); Red Cell Distribution Width 13.4 % (11.0-16.0); White Blood Count 6.2 X10*3/uL (4.8-10.8)
[2024-12-31 13:57] LABS: Alanine Aminotransferase 47 U/L (0-31); Albumin Level 3.6 g/dL (3.5-5.0); Alkaline Phosphatase 77 U/L (39-117); Anion Gap 11 (12-20); Aspartate Amino Transferase 39 U/L (5-31); Bilirubin Total 0.4 mg/dL (0.0-1.0); Blood Urea Nitrogen 16 mg/dL (9-16); C Reactive Protein 0.57 mg/dL (< or = 0.50); Calcium 8.8 mg/dL (8.4-10.2); Carbon Dioxide 26 mmol/L (22-29); Chloride 110 mmol/L (96-108); Cholesterol 200 mg/dL (<200); Estimated Glomerular Filt Rate > 60; Glucose Random 85 mg/dL (60-115); HDL Cholesterol 45 mg/dL (>40); LDL Cholesterol Calculated 134 mg/dL (<100); Potassium 3.8 mmol/L (3.3-5.1); Sodium 143 mmol/L (135-145); Total Protein 6.5 g/dL (6.5-8.0); Triglycerides 108 mg/dL (<150)
[2024-12-31 13:58] LABS: HCG Quantitative < 2 mIU/mL
[2024-12-31 14:13] LABS: Vitamin D 25-OH Total 20.8 ng/mL (>30)
[2024-12-31 14:14] LABS: Erythrocyte Sedimentation Rate 8 MM/HR (0-20)
[2024-12-31 14:20] LABS: TSH reflex Free T4 6.21 uIU/mL (0.32-4.0)
[2024-12-31 15:31] LABS: Reflex LDLD? No
[2024-12-31 16:00] LABS: Free T4 (Free Thyroxine) 0.88 ng/dL (0.71-1.85)
[2025-01-01 03:28] LABS: Follicle Stimulating Hormone 7.8 mIU/mL; Lutenizing Hormone 2.3 mIU/mL; Prolactin 9.1 ng/mL
[2025-01-18 14:32] LABS: Testosterone, Total 29
== END 2024-12-31 12:13 | disposition home or self-care (01) ==
LOC: HO.HHCL 12:12
PROVIDERS: Advanced Practice Midwife; Family Medicine; Visit Provider Family Medicine
DX: N94.6 Dysmenorrhea, unspecified (principal); L68.0 Hirsutism; R51.9 Headache, unspecified; R03.0 Elevated blood-pressure reading, without diagnosis of hypertension; E55.9 Vitamin D deficiency, unspecified; Z32.01 Encounter for pregnancy test, result positive
CPT/HCPCS: 36415; 80053; 80061; 82306; 83001; 83002; 84146; 84403; 84439; 84443; 84702; 85025; 85652; 86140

== ENCOUNTER 2025-02-04 14:13 | Outpatient (AMB) | payer MEDICAID, SELFPAY ==
--- NOTE | 2025-02-04 14:17 | MHC.OFFVIS ---
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 Patient reports she is having CTS, states right is worse, and is worse in the morning and night time. EMG/NCS done on 11/06/24 MPRESSION: 1. This is an abnormal study. 2. There is electrodiagnostic evidence for right moderate-severe and left mild median neuropathy at the wrist, consistent with carpal tunnel syndrome. 3. There is no electrodiagnostic evidence for ulnar neuropathy, brachial plexopathy, or cervical radiculopathy. Allergies No Known Allergies Allergy (Verified 02/04/25 14:21) HPI HPI ADVERTISING ASSISTANT-B/L hand/wrist CTS: Details: Coral is a 35 year old left hand dominant female who presents today for a new patient visit for evaluation of her bilateral upper extremities. Patient reports she is having numbness, tingling, pain, states right is worse, and is worse in the morning and night time. EMG/NCS done on 11/06/24 MPRESSION: 1. This is an abnormal study. 2. There is electrodiagnostic evidence for right moderate-severe and left mild median neuropathy at the wrist, consistent with carpal tunnel syndrome. 3. There is no electrodiagnostic evidence for ulnar neuropathy, brachial plexopathy, or cervical radiculopathy. [facility] Medical History Cholelithiasis GERD (gastroesophageal reflux disease) Hypothyroidism Morbid obesity Surgical History No significant past surgical history Family History Mother Hypertension Father Arthritis Prediabetes Sister No problems noted. Sister No problems noted. Sister Hypertension Arthritis Son No problems noted. Daughter No problems noted. Social History (Updated 02/04/25 @ 14:22 by KHUSHBOO Krishnan) Alcohol intake: never Current occupational status: unemployed Current occupation: left Review of Systems Const All systems reviewed & are unremarkable except as noted in HPI and below Physical Exam Vital Signs: BMI result Body Mass Index 63.2 Extrem Other: Neuro: Decreased sensation in the median nerve distribution of the right hand. Normal sensation to all other digits in the right hand today. Normal sensation in the tips of all digits of the left hand today. No thenar or intrinsic wasting. Good APB muscle firing and good finger cross. Vascular: Capillary refill brisk. ROM: Patient can make a fist and extend all their digits. Skin: No lacerations or abrasions noted. General: No ecchymosis. No erythema or evidence of infection. [] Assessment & Plan Assessment & Plan (1) Bilateral carpal tunnel syndrome: Code(s): G56.03 - Carpal tunnel syndrome, bilateral upper limbs Category: Medical Plan 1. Carpal tunnel syndrome, right Symptoms intermittent, daily, worse at night I educated the patient about the condition. I discussed both operative and nonoperative treatment options. The patient would like to proceed with surgery. The risks and benefits of operative treatment were discussed with the patient and the patient wishes to proceed with surgery. These risks include, but are not limited to, risk of damage to blood vessels, nerves, tendons, infection, recurrence, incomplete relief of preoperative symptoms, persistent pain, possible need for further surgery, and the risks associated with regional blocks and/or anesthesia. Plan is to take the patient to the operating room at some point in the next few weeks for the following procedures: 1. Right carpal tunnel release under local All of the preoperative paperwork including the consent was discussed today. All of the patient's questions were answered in the clinic today. The patient understands that they will be in contact with our surgical supervisor to discuss scheduling their procedure. Patient denies diabetes, blood thinners, asthma, heart issues, lung issues, kidney issues, or current smoking. Coding Level of Care Code New Pt Level 4 (47869) Diagnoses Bilateral carpal tunnel syndrome G56.03
[2025-02-04 14:20] VITALS: BMI 63.2
--- OUTSIDE RECORDS SUMMARY | 2025-02-04 15:29 | XMS_ITS | Encounter Summary ---
Author Organization [employer] Address [address] [facility] [address]t [place] [address] Care Team Providers Care Indirect Fire Infantryman Name Role Phone Claribel Shi MD Primary Care Provider [phone] Encounter Details Date Type Department Care Team (Latest Contact Info) Description 12/31/2024 Results Follow-Up [facility] [address] [place] [address] [phone] Migel Polo MD [address] [place] [phone] hCG, Total, Quantitative Social History Tobacco Use Types Packs/Day Years [...] Info) Description 02/05/2025 11:30 AM EDT Telemedicine [facility] [address] [place] [phone] 04/01/2025 11:00 AM EDT Procedure Visit [facility] [address] [place] [address] Chelsey Nava CNM [address] [place] [address] documented as of this encounter Visit Diagnoses Not on filedocumented in this encounter Additional Health Concerns Assessment Noted Time PHQ-9 Depression Total Score: 0 10/01/19 25 11:02 AM EST documented as of this encounter Care Teams Indirect Fire Infantryman Relationship Specialty Start Date End Date Claribel Shi MD [address] [place] [phone] PCP - General Family Medicine 03/20/12 documented as of this encounter
== END 2025-02-04 14:48 | disposition home or self-care (01) ==
LOC: HO.HOS 14:13
PROVIDERS: PCP Family Medicine
DX: G56.03 Carpal tunnel syndrome, bilateral upper limbs (principal)
CPT/HCPCS: 99204

== ENCOUNTER → 2025-02-04 14:13 | Outpatient (BNVA) | payer MEDICAID, SELFPAY | PROVIDERS: PCP Family Medicine | DX: G56.03 Carpal tunnel syndrome, bilateral upper limbs (principal) | CPT/HCPCS: 99212 ==

== ENCOUNTER 2025-04-01 11:39 | Outpatient (REF) | payer MEDICAID, SELFPAY ==
--- OUTSIDE RECORDS SUMMARY | 2025-04-01 12:45 | XMS_ITS | Encounter Summary ---
Author Organization [employer] Address [address] [facility] [address]t [place] [address] Care Team Providers Care Concrete Block Plant Supervisor Name Role Phone Claribel Shi MD Primary Care Provider [phone] Encounter Details Date Type Department Care Team (Latest Contact Info) Description 04/01/2025 Travel Social History Tobacco Use Types Packs/Day [...] Date Recorded Patient Health Questionnaire-9 Score 0 01/21/2025 Patient Health Questionnaire-9 Score 0 01/21/2025 Last PHQ-9: Questionnaire Data Not on file 0 01/21/2025 Housing Stability Answer Date Recorded What is [...] got money to buy more: Never True 01/28/2025 Within the past 12 months,th e food you bought just didn't last and you didn't have enough money to get more: Never True 07/2025 Transportation Answer Date Recorded In the past [...] Date Recorded Patient Health Questionnaire-2 Score 0 01/21/2025 Internet Access Answer Date Recorded Internet Access Q1 Yes 06/03/2024 Internet Access Q2 Not on file 06/03/2024 Comments No Sex and Gender Information Value Date Recorded Sex Assigned at Female 06/18/2022 10:21 AM EDT Legal Sex Female 10:21 AM EDT Gender Identity Female 06/18/2022 10:21 AM EDT Sexual Orientation Straight 06/18/2022 10 :21 AM EDT documented as of this encounter Plan of Treatment Not on file documented as of this encounter Visit Diagnoses Not on filedocumented in this encounter Additional Health Concerns Assessment Noted Time PHQ-9 Depression Total Score: 0 01/22/20 25 2:44 PM EDT documented as of this encounter Care Teams Concrete Block Plant Supervisor Relationship Specialty Start Date End Date Claribel Shi MD [address] [place] [id number] PCP - General Family Medicine 03/20/12 documented as of this encounter
[2025-04-01 15:02] LABS: Free T4 (Free Thyroxine) 0.94 ng/dL (0.71-1.85)
== END 2025-04-01 11:40 | disposition home or self-care (01) ==
LOC: HO.HHCL 11:39
PROVIDERS: Advanced Practice Midwife; PCP Family Medicine; Visit Provider Family Medicine
DX: Z11.51 Encounter for screening for human papillomavirus (HPV) (principal); E06.3 Autoimmune thyroiditis; N93.9 Abnormal uterine and vaginal bleeding, unspecified; Z12.4 Encounter for screening for malignant neoplasm of cervix
CPT/HCPCS: 36415; 84439; 84443; 84702; 87626; 88175